=== PATIENT | male | born 1975 | race Caucasian/White ===

== ENCOUNTER → 2017-02-01 | Outpatient (CLI) | payer OTHER ==
--- NOTE | 2017-02-01 13:42 | MR ---
EXAMINATION TYPE: MR lumbar spine wo con DATE OF EXAM: 02/01/2017 10:29 AM COMPARISON: NONE HISTORY: lumbago TECHNIQUE: T1 and T2 axial and sagittal images of the lumbar spine are submitted. FINDINGS: There is no abnormal signal seen within the visualized spinal cord or paraspinal soft tissu es. At L1-2 there is no disc herniation, canal stenosis, or foraminal encroachment. At L2-3 there is no disc herniation, canal stenosis, or foraminal encroachment At L3-4 there is no disc herniation, canal stenosis, or foraminal encroachment At L4-5 there is no disc herniation, canal stenosis, or foraminal encroachment At L5-S1 there is annular tear and disc desiccation with broad-based central disc small herniation an d mild effacement of thecal sac. Mild bilateral foraminal encroachment. IMPRESSION: 1. Annular tear broad-based central disc herniation L5-S1 with mild thecal sac effacement and mild bi lateral foraminal encroachment.
== END | disposition home or self-care (01) ==
LOC: RADMRIMAIN 09:58
PROVIDERS: ATTEND Family Medicine
DX: M51.27 Other intervertebral disc displacement, lumbosacral region (principal)
CPT/HCPCS: 72148

== ENCOUNTER 2023-09-05 09:41 | Emergency (ER) | payer OTHER ==
[2023-09-05] MEDS ORDERED: HYDROcodone/APAP 7.5-325MG 1 EACH TAB PO ONE (10:00)
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
[2023-09-05 11:51] VITALS: BP 112/73; PULSE 93; RESP 18; TEMP 98.1
== END 2023-09-05 11:38 | disposition home or self-care (01) ==
LOC: EC 09:41
DX: S80.212A Abrasion, left knee, initial encounter (principal); S80.211A Abrasion, right knee, initial encounter; M54.9 Dorsalgia, unspecified; M47.814 Spondylosis without myelopathy or radiculopathy, thoracic region; M47.816 Spondylosis without myelopathy or radiculopathy, lumbar region; M51.36 Other intervertebral disc degeneration, lumbar region; J45.909 Unspecified asthma, uncomplicated; E11.9 Type 2 diabetes mellitus without complications; F17.200 Nicotine dependence, unspecified, uncomplicated; V89.2XXA Person injured in unspecified motor-vehicle accident, traffic, initial encounter; Y92.411 Interstate highway as the place of occurrence of the external cause
CPT/HCPCS: 70450; 72100; 72125; 99284

== ENCOUNTER 2025-01-27 03:15 | Inpatient (IN) | payer OTHER ==
--- NOTE | 2025-01-27 03:35 | ED ---
General Adult HPI - General Chief complaint: Abdominal Pain Stated complaint: Abdominal Pain Time Seen by Provider: 01/27/25 03:21 Source: patient Mode of arrival: ambulatory - History of Present Illness Initial comments: Dictation was produced using Jigsee dictation software. please excuse any grammatical, word or spelling errors. Chief Complaint: 49-year-old male presents to the emergency department with periumbilical abdominal pain History of Present Illness: Patient is a 49-year-old male presents emergency department 3 days of periumbilical abdominal pain. Patient states that the pain is severe he has history of diabetes. Denies any urinary symptoms. Denies any history of diverticulitis. No history of abdominal surgery. Patient's pain is nonradiating and sharp in nature. Does report some nausea and poor appetite. The ROS documented in this emergency department record has been reviewed and confirmed by me. Those systems with pertinent positive or negative responses have been documented in the HPI. All other systems are other negative and/or noncontributory. - Related Data Home Medications Medication Instructions Recorded Confirmed HYDROcodone/APAP 5-325MG [[place] 1 tab PO Q4HR PRN 01/27/25 01/27/25 5-325] Previous Rx's Medication Instructions Recorded Celecoxib [CeleBREX] 100 mg PO BID #20 cap 12/21/24 Insulin Glargine,Hum.rec.anlog 25 units SQ DAILY #2 pen 12/21/24 [Lantus Solostar Pen] bisacodyL [Dulcolax] 5 mg PO DAILY PRN tab 12/21/24 Allergies Allergy/AdvReac Type Severity Reaction Status Date / Time No Known Allergies Allergy Verified 01/27/25 06:40 Review of Systems ROS Statement: Those systems with pertinent positive or pertinent negative responses have been documented in the HPI. ROS Other: All systems not noted in ROS Statement are negative. Past Medical History Past Medical History: Asthma, Diabetes Mellitus History of Any Multi-Drug Resistant Organisms: None Reported Past Surgical History: Orthopedic Surgery Past Anesthesia/Blood Transfusion Reactions: No Reported Reaction Past Psychological History: No Psychological Hx Reported Smoking Status: Current every day smoker Past Alcohol Use History: None Reported Past Drug Use History: None Reported General Exam - General Exam Comments Initial Comments: PHYSICAL EXAM: General Impression: Alert and oriented x3, acute distress secondary to pain HEENT: Normocephalic atraumatic, extra-ocular movements intact, pupils equal and reactive to light bilaterally, mucous membranes moist. Cardiovascular: Heart regular rate and rhythm Chest: Able to complete full sentences, no retractions, no tachypnea Abdomen: abdomen soft, palpatory tenderness to the lower abdomen, non-distended, no organomegaly Musculoskeletal: Pulses present and equal in all extremities, no peripheral edema Motor: no focal deficits noted Neurological: CN II-XII grossly intact, no focal motor or sensory deficits noted Skin: Intact with no visualized rashes Psych: Normal affect and mood Course Vital Signs 01/27/25 01/27/25 01/27/25 03:16 04:19 06:37 Temperature 98.1 F 98.1 F Pulse Rate 113 H 106 H 104 H Respiratory 19 20 20 Rate Blood Pressure 116/72 132/92 120/91 O2 Sat by Pulse 96 96 97 Oximetry EKG Findings - EKG Comments: EKG Findings:: My EKG interpretation: Ventricular rate 11, sinus tachycardia,. 141, QRS 92, QTc 4 7. No [place] prolongation, no QTC prolongation, no ST or T-wave changes notedOverall, this EKG is unremarkable Medical Decision Making - Medical Decision Making Was pt. sent in by a medical professional or institution (, PA, FAMILY AND MARRIAGE COUNSELLOR, urgent care, hospital, or shelter...) When possible be specific @ -No Did you speak to anyone other than the patient for history (EMS, parent, family, police, friend...)? What history was obtained from this source @ -No Did you review nursing and triage notes (agree or disagree)? Why? @ -I reviewed and agree with nursing and triage notes Were old charts reviewed (outside hosp., previous admission, EMS record, old EKG, old radiological studies, urgent care reports/EKG's, shelter records)? Report findings @ -No old charts were reviewed Differential Diagnosis (chest pain, altered mental status, abdominal pain women, abdominal pain men, vaginal bleeding, musculoskeletal, weakness, fever, dyspnea, syncope, headache, dizziness, GI bleed, back pain, seizure, CVA, palpatations, mental health)? @ -Differential Abdominal Pain Men: Appendicitis, cholecystitis, diverticulosis, ischemic bowel, pancreatitis, hepatitis, UTI, gastroenteritis, AAA, incarcerated hernia, bowel obstruction, constipation, inflammatory bowel, hepatitis, peptic ulcer disease, splenic infarction, perforated viscus, testicular torsion, this is not meant to be an a ll-inclusive list EKG interpreted by me (3pts min.). @ -See above X-rays interpreted by me (1pt min.). @ -None done CT interpreted by me (1pt min.). @ -CT abdomen pelvis shows worsening perinephric fluid to the right kidney concerning for calyx rupture versus inflammatory process. U/S interpreted by me (1pt. min.). @ -None done What testing was considered but not performed or refused? (CT, X-rays, U/S, labs)? Why? @ -None What meds were considered but not given or refused? Why? @ -None Was smoking cessation discussed for >3mins.? @ -No Were there social determinants of health that impacted care today? How? (Homelessness, low income, unemployed, alcoholism, drug addiction, transportat ion, low edu. Level, literacy, decrease access to med. care, residential, rehab)? @ -No Was there de-escalation of care discussed even if they declined (Discuss DNR or withdrawal of care, Hospice)? DNR status @ -No What co-morbidities impacted this encounter? (DM, HTN, Smoking, COPD, CAD, Cancer, CVA, ARF, Chemo, Hep., AIDS, mental health diagnosis, sleep apnea, morbid obesity)? @ -Diabetes Was patient admitted / discharged? Hospital course, mention meds given and route, prescriptions, significant lab abnormalities, going to OR and other pertinent info. @ -49-year-old insulin-dependent diabetic male presents the emergency department for abdominal pain. Vital signs upon arrival shows tachycardia 113. Patient states that he has been having issues taking his diabetes medications consistently. Complains of 3 days of abdominal pain nausea vomiting. Patient denies ever being hospitalized for DKA in the past. Examination shows well- appearing male with smell of acetone. Evaluation shows leukocytosis of 15.1. Coag panel is negative. Bicarb of 7, anion gap of 32. Blood glucose 248. Labo ratory evaluation consistent with diabetic ketoacidosis. Pending urinalysis. Case will be discussed with urology given that CT shows worsening perinephric fluid around the right kidney. Patient reevaluated at bedside at 6:45 AM found to be in improved condition after analgesics. He does not have any flank pain. Did you discuss the management of the patient with other professionals (professionals i.e. , PA, FAMILY AND MARRIAGE COUNSELLOR, lab, RT, psych nurse, manager social responsibility, fringe weaver, teacher, disabilities services officer, correctional case manager)? Give summary @ -Case discussed with software quality specialist for ICU admission. Was critical care preformed (if so, how long)? @ -Yes, 77 minutes for management of severe metabolic derangement Undiagnosed new problem with uncertain prognosis? @ -No Drug Therapy requiring intensive monitoring for toxicity (Heparin, Nitro, Insulin, Cardizem)? @ -No Were any procedures done? @ -No Diagnosis/symptom? Acute, or Chronic, or Acute on Chronic? Uncomplicated (without systemic symptoms) or Complicated (systemic symptoms)? @ -DKA Side effects of treatment? @ -No Exacerbation, Progression, or Severe Exacerbation? @ -No Poses a threat to life or bodily function? How? (Chest pain, [place], [place], pneumonia, PE, COPD, DKA, ARF, appy, cholecystitis, CVA, Diverticulitis, Homicidal, Suicidal, threat to staff... and all critical care pts) @ -yes - Lab Data Result diagrams: 01/27/25 03:43 01/27/25 03:43 Lab Results 01/27/25 01/27/25 01/27/25 Range/Units 03:43 03:43 03:43 WBC 15.1 H (3.8-10.6) k/uL RBC 5.93 H (4.30-5.90) m/uL Hgb 16.1 D (13.0-17.5) gm/dL Hct 50.9 (39.0-53.0) % MCV 85.9 (80.0-100.0) fL MCH 27.1 (25.0-35.0) pg MCHC 31.6 (31.0-37.0) g/dL RDW 14.9 (11.5-15.5) % Plt Count 446 D (150-450) k/uL MPV 7.2 Neutrophils % 82 % Lymphocytes % 10 % Monocytes % 4 % Eosinophils % 1 % Basophils % 1 % Neutrophils # 12.4 H (1.3-7.7) k/uL Lymphocytes # 1.6 (1.0-4.8) k/uL Monocytes # 0.6 (0-1.0) k/uL Eosinophils # 0.1 (0-0.7) k/uL Basophils # 0.1 (0-0.2) k/uL Hypochromasia Marked PT 11.7 (10.0-12.5) sec INR 1.1 (<1.2) APTT 23.1 (22.0-30.0) sec VBG pH (7.31-7.41) VBG pCO2 (37-51) mmHg VBG HCO3 (24-28) mmol/L Sodium 141 (137-145) mmol/L Potassium 5.3 H (3.5-5.1) mmol/L Chloride 102 (98-107) mmol/L Carbon Dioxide 7 L* (22-30) mmol/L Anion Gap 32 mmol/L BUN 24 H (9-20) mg/dL Creatinine 1.05 (0.66-1.25) mg/dL Est GFR (CKD-EPI)AfAm >90 (>60 ml/min/1.73 sqM) Est GFR (CKD-EPI)NonAf 83 (>60 ml/min/1.73 sqM) Glucose 248 H (74-99) mg/dL Calcium 10.2 (8.4-10.2) mg/dL Total Bilirubin 0.7 (0.2-1.3) mg/dL AST 13 L (17-59) U/L ALT 13 (4-49) U/L Alkaline Phosphatase 111 (38-126) U/L Total Protein 8.1 (6.3-8.2) g/dL Albumin 4.4 (3.5-5.0) g/dL Lipase 290 (23-300) U/L Acetone, Qual (Negative) 01/27/25 01/27/25 Range/Units 05:34 05:34 WBC (3.8-10.6) k/uL RBC (4.30-5.90) m/uL Hgb (13.0-17.5) gm/dL Hct (39.0-53.0) % MCV (80.0-100.0) fL MCH (25.0-35.0) pg MCHC (31.0-37.0) g/dL RDW (11.5-15.5) % Plt Count (150-450) k/uL MPV Neutrophils % % Lymphocytes % % Monocytes % % Eosinophils % % Basophils % % Neutrophils # (1.3-7.7) k/uL Lymphocytes # (1.0-4.8) k/uL Monocytes # (0-1.0) k/uL Eosinophils # (0-0.7) k/uL Basophils # (0-0.2) k/uL Hypochromasia PT (10.0-12.5) sec INR (<1.2) APTT (22.0-30.0) sec VBG pH 7.14 L* (7.31-7.41) VBG pCO2 32 L (37-51) mmHg VBG HCO3 11 L (24-28) mmol/L Sodium (137-145) mmol/L Potassium (3.5-5.1) mmol/L Chloride (98-107) mmol/L Carbon Dioxide (22-30) mmol/L Anion Gap mmol/L BUN (9-20) mg/dL Creatinine (0.66-1.25) mg/dL Est GFR (CKD-EPI)AfAm (>60 ml/min/1.73 sqM) Est GFR (CKD-EPI)NonAf (>60 ml/min/1.73 sqM) Glucose (74-99) mg/dL Calcium (8.4-10.2) mg/dL Total Bilirubin (0.2-1.3) mg/dL AST (17-59) U/L ALT (4-49) U/L Alkaline Phosphatase (38-126) U/L Total Protein (6.3-8.2) g/dL Albumin (3.5-5.0) g/dL Lipase (23-300) U/L Acetone, Qual Positive (Negative) Disposition Clinical Impression: DKA (diabetic ketoacidosis) Disposition: ADMITTED IP TO THIS [facility] Condition: Critical Decision Time: 05:50
[2025-01-27] MEDS: SODIUM CHLORIDE 0.9% 1,000 ML IV STA ×2 (03:52→05:39)
[2025-01-27] MEDS: ONDANSETRON 4 MG/2 ML VIAL IVP STA (03:52)
[2025-01-27 03:54] LABS: Basophils # (A) 0.1 k/uL (0-0.2); Basophils % (A) 1 %; Eosinophils # (A) 0.1 k/uL (0-0.7); Eosinophils % (A) 1 %; HCT 50.9 % (39.0-53.0); Hypochromasia Marked; Lymphocytes # (A) 1.6 k/uL (1.0-4.8); Lymphocytes % (A) 10 %; MCH 27.1 pg (25.0-35.0); MCHC 31.6 g/dL (31.0-37.0); MCV 85.9 fL (80.0-100.0); Mean Platelet Volume 7.2; Monocytes # (A) 0.6 k/uL (0-1.0); Monocytes % (A) 4 %; Neutrophils # (A) 12.4 k/uL (1.3-7.7); Neutrophils % (A) 82 %; RBC 5.93 m/uL (4.30-5.90); RDW 14.9 % (11.5-15.5); WBC 15.1 k/uL (3.8-10.6)
[2025-01-27] MEDS: MORPHINE SULFATE 4 MG/ML SYRINGE IV STA (03:54)
[2025-01-27 04:04] LABS: HGB 16.1 gm/dL (13.0-17.5); INR 1.1 (<1.2); Partial Thromboplastin Time 23.1 sec (22.0-30.0); Platelet Count 446 k/uL (150-450); Prothrombin Time 11.7 sec (10.0-12.5)
[2025-01-27 04:32] LABS: ALT 13 U/L (4-49); AST 13 U/L (17-59); African American GFR (CKD) >90 (>60 ml/min/1.73 sqM); Albumin 4.4 g/dL (3.5-5.0); Alkaline Phosphatase 111 U/L (38-126); Anion Gap 32 mmol/L; Blood Urea Nitrogen 24 mg/dL (9-20); Calcium 10.2 mg/dL (8.4-10.2); Chloride 102 mmol/L (98-107); Glucose 248 mg/dL (74-99); Lipase 290 U/L (23-300); Non-African American GFR(CKD) 83 (>60 ml/min/1.73 sqM); Potassium 5.3 mmol/L (3.5-5.1); Sodium 141 mmol/L (137-145); Total Bilirubin 0.7 mg/dL (0.2-1.3); Total Protein 8.1 g/dL (6.3-8.2)
[2025-01-27 04:57] LABS: Carbon Dioxide 7 mmol/L (22-30)
[2025-01-27 06:10] LABS: VBG PH 7.14 (7.31-7.41)
[2025-01-27 06:19] LABS: Glucose,Whole Blood 201 mg/dL (70-110)
[2025-01-27] MEDS: D5-0.45% NACL WITH KCL 20MEQ/L 1,000 ML IV SCH (06:27)
[2025-01-27] MEDS: INSULIN REGULAR 100 UNIT in SODIUM CHLORIDE 0.9% 100 ML IV SCH (06:27)
[2025-01-27] MEDS: INSULIN REGULAR BOLUS (FROM DRIP BAG) IV ONE (06:32)
[2025-01-27] MEDS: SODIUM CHLORIDE 0.9% 1,000 ML IV SCH (06:43)
--- NOTE | 2025-01-27 06:43 | CT ---
EXAMINATION TYPE: CT abdomen pelvis w con DATE OF EXAM: 01/27/2025 COMPARISON: Prior CT December 17, 2024 CLINICAL INDICATION: Male, 49 years old with history of severe periumbilical pain, vomiting nausea an d sharp stabbing abd pain., TECHNIQUE: CT scan of the abdomen and pelvis is performed with IV Contrast, patient injected with 100 mL of Isov ue 300., (none if empty) Oral contrast used: without Oral Contrast (none if empty) CT DLP: 1306 mGycm, Automated exposure control for dose reduction was used. FINDINGS: LUNG BASES: No significant abnormality is appreciated. LIVER/GB: Liver remains heterogeneously hypodense suggesting diffuse fatty infiltrative hepatocellula r disease. PANCREAS: No significant abnormality is seen. SPLEEN: No significant abnormality is seen. ADRENALS: No significant abnormality is seen. KIDNEYS: Right kidney demonstrates diminished signal involving posterior portion of the kidney delaye d images suggesting washout. There is more focal well-defined circumscribed fluid collection along th e posterior aspect of the right kidney measuring 6.8 x 4.5 cm coronal image 63. There is more promine nt ill-defined perinephric fluid posteriorly axial image 43. Left kidney is unremarkable. BOWEL:. Distal colonic diverticula are redemonstrated. No CT evidence for acute diverticulitis. No ab normal small or large bowel dilatation. PROSTATE/SEMINAL VESICLES: No gross abnormality seen. LYMPH NODES: No greater than 1cm abdominal or pelvic lymph nodes are appreciated. OSSEOUS STRUCTURES: No significant abnormality is seen. OTHER: No significant additional abnormality is seen. IMPRESSION: 1. Worsening perinephric fluid posterior to the right kidney. One must consider calyx rupture versus infection/inflammatory process. There is now also nonspecific 6.8 cm moderate size thin-walled fluid collection or cyst in the posterior aspect of the right kidney at the area diminished perfusion on pr ior exam. New abscess needs to be considered among possible etiologies. [facility], , 01/27/2025 6:41 AM
[2025-01-27 07:05] LABS: Glucose,Whole Blood 172 mg/dL (70-110)
[2025-01-27 07:39] LABS: Appearance,Urine Clear (Clear); Bilirubin,Urine Negative (Negative); Blood,Urine Negative (Negative); Glucose,Urine (UA) 4+ (Negative); Leukocyte Esterase,Urine Negative (Negative); Nitrite,Urine Negative (Negative); Protein,Urine Negative (Negative); Specific Gravity,Urine 1.029 (1.001-1.035); Urobilinogen,Urine <2.0 mg/dL (<2.0)
[2025-01-27] MEDS ORDERED: bisacodyL 5 MG TABLET.DR PO PRN (08:14)
[2025-01-27] MEDS ORDERED: ACETAMINOPHEN TAB 325 MG TAB PO PRN (08:15)
[2025-01-27 08:16] LABS: African American GFR (CKD) >90 (>60 ml/min/1.73 sqM); Anion Gap 25 mmol/L; Blood Urea Nitrogen 23 mg/dL (9-20); Carbon Dioxide 10 mmol/L (22-30); Chloride 109 mmol/L (98-107); Glucose 138 mg/dL (74-99); Non-African American GFR(CKD) >90 (>60 ml/min/1.73 sqM); Potassium 4.4 mmol/L (3.5-5.1); Sodium 144 mmol/L (137-145)
[2025-01-27] MEDS: HYDROcodone/APAP 5-325MG 1 EACH TAB PO PRN (08:23)
[2025-01-27 08:24] LABS: Color,Urine Light yellow; Ketones,Urine 4+ (Negative)
[2025-01-27 08:29] LABS: Glucose,Whole Blood 125 mg/dL (70-110)
[2025-01-27 09:33] LABS: Glucose,Whole Blood 90 mg/dL (70-110)
--- NOTE | 2025-01-27 09:36 | P.HPIM ---
History of Present Illness This is a pleasant 49 years old male with past medical history of diabetes mellitus and multiple medical problems Presents because of worsening abdominal pain of 3 days duration about 7/10 severity central nonradiating felt like sharp and stabbing and is constant with no significant relieving or precipitating factors No diarrhea and his last bowel movement was 2 days ago. He vomited over the 3 days with no blood. He denies chest pain or dyspnea. No urinary complaint like dysuria or urgency, no headache dizziness weakness or numbness Currently feels his abdominal pain is better He smokes 1 pack/day and was counseled to quit but he declines however he agrees to the nicotine patch while he is in the hospital. No alcohol or illicit drugs. He was not taking antibiotics at home Patient states he takes 3 pills for diabetes that he cannot remember the name plus Trulicity injection. He is tachycardic and afebrile Labs showing leukocytosis 15,000, hemoglobin 16.1 potassium 5.3 glucose 200-248. pH is low at 7.14 and pCO2 is 32. Anion gap is elevated 32. Acetone is positive EKG showing sinus tachycardia at 111 CT of the abdomen showing right kidney perinephric fluid posteriorly and there is secondary to infection/inflammatory versus rupture right kidney calyx also there is posterior right kidney cyst that was 6.8 cm need to rule out abscess Review of Systems Review of systems CONSTITUTIONAL: No fever, no malaise, no fatigue. HEENT: No recent visual problems or hearing problems. Denied any sore throat. CARDIOVASCULAR: No orthopnea, PND, no palpitations, no syncope. PULMONARY: No shortness of breath, no cough, no hemoptysis. GASTROINTESTINAL: No diarrhea, no nausea, no vomiting, no abdominal pain. Normoactive bowel sounds. NEUROLOGICAL: No headaches, no weakness, no numbness. HEMATOLOGICAL: Denies any bleeding or petechiae. GENITOURINARY: Denies any burning micturition, frequency, or urgency. MUSCULOSKELETAL/RHEUMATOLOGICAL: Denies any joint pain, swelling, or any muscle pain. ENDOCRINE: Denies any polyuria or polydipsia. Past Medical History Past Medical History: Asthma, Diabetes Mellitus History of Any Multi-Drug Resistant Organisms: None Reported Past Surgical History: Orthopedic Surgery Past Anesthesia/Blood Transfusion Reactions: No Reported Reaction Past Psychological History: No Psychological Hx Reported Smoking Status: Current every day smoker Past Alcohol Use History: None Reported Past Drug Use History: None Reported Medications and Allergies Home Medications Medication Instructions Recorded Confirmed Type Celecoxib [CeleBREX] 100 mg PO BID #20 cap 12/21/24 01/27/25 Rx Insulin Glargine,Hum.rec.anlog 25 units SQ DAILY #2 pen 12/21/24 01/27/25 Rx [Lantus Solostar Pen] bisacodyL [Dulcolax] 5 mg PO DAILY PRN tab 12/21/24 01/27/25 Rx HYDROcodone/APAP 5-325MG [Mason 1 tab PO Q4HR PRN 01/27/25 01/27/25 History 5-325] Allergies Allergy/AdvReac Type Severity Reaction Status Date / Time No Known Allergies Allergy Verified 01/27/25 06:40 Physical Exam Vitals: Vital Signs Temp Pulse Resp BP Pulse Ox 01/27/25 09:00 108 H 23 116/67 97 01/27/25 08:00 97.9 F 111 H 18 117/85 95 01/27/25 07:00 110 H 14 130/87 96 01/27/25 06:44 98.7 F 111 H 22 130/87 96 01/27/25 06:37 98.1 F 104 H 20 120/91 97 01/27/25 04:19 106 H 20 132/92 96 01/27/25 03:16 98.1 F 113 H 19 116/72 96 Intake and Output 01/26/25 01/27/25 01/27/25 22:59 06:59 14:59 Intake Total 471.532 Output Total 500 Balance -28.468 Intake: IV 450 D5-0.45% NaCl with KCl 450 20Meq/l 1,000 ml @ 150 mls/hr IV .Q6H40M [facility] Rx# :[id number] Intake, IV Titration 21.532 Amount Insulin Regular 100 unit 21.532 In Sodium Chloride 0.9% 100 ml @ 0.1 UNITS/KG/HR 10.766 mls/hr IV .Q9H23M [facility] Rx#:[id number] Output: Urine 500 Other: Voiding Method Urinal Weight 106.594 kg GENERAL: The patient is alert and oriented x3, not in any acute distress. Well developed, well nourished. HEENT: Pupils are round and equally reacting to light. EOMI. No scleral icterus. No conjunctival pallor. Normocephalic, atraumatic. No pharyngeal erythema. No thyromegaly. CARDIOVASCULAR: S1 and S2 present. No murmurs, rubs, or gallops. PULMONARY: Chest is clear to auscultation, no wheezing , no crackles. -ABDOMEN: Soft, mild central tenderness with no rebound tenderness or guarding r, nondistended, normoactive bowel sounds. No palpable organomegaly. MUSCULOSKELETAL: No joint swelling or deformity. EXTREMITIES: No cyanosis, clubbing, or pedal edema. NEUROLOGICAL: Gross neurological examination did not reveal any focal deficits. SKIN: No rashes. no petechiae. Results CBC & Chem 7: 01/27/25 03:43 01/27/25 07:38 Labs: Abnormal Lab Results - Last 24 Hours (Table) 01/27/25 01/27/25 01/27/25 Range/Units 03:43 03:43 05:34 WBC 15.1 H (3.8-10.6) k/uL RBC 5.93 H (4.30-5.90) m/uL Neutrophils # 12.4 H (1.3-7.7) k/uL VBG pH 7.14 L* (7.31-7.41) VBG pCO2 32 L (37-51) mmHg VBG HCO3 11 L (24-28) mmol/L Potassium 5.3 H (3.5-5.1) mmol/L Chloride (98-107) mmol/L Carbon Dioxide 7 L* (22-30) mmol/L BUN 24 H (9-20) mg/dL Glucose 248 H (74-99) mg/dL POC Glucose (mg/dL) (70-110) mg/dL Phosphorus (2.5-4.5) mg/dL AST 13 L (17-59) U/L Urine Glucose (UA) (Negative) Urine Ketones (Negative) 01/27/25 01/27/25 01/27/25 Range/Units 06:18 06:59 07:03 WBC (3.8-10.6) k/uL RBC (4.30-5.90) m/uL Neutrophils # (1.3-7.7) k/uL VBG pH (7.31-7.41) VBG pCO2 (37-51) mmHg VBG HCO3 (24-28) mmol/L Potassium (3.5-5.1) mmol/L Chloride (98-107) mmol/L Carbon Dioxide (22-30) mmol/L BUN (9-20) mg/dL Glucose (74-99) mg/dL POC Glucose (mg/dL) 201 H 172 H (70-110) mg/dL Phosphorus (2.5-4.5) mg/dL AST (17-59) U/L Urine Glucose (UA) 4+ H (Negative) Urine Ketones 4+ H (Negative) 01/27/25 01/27/25 01/27/25 Range/Units 07:38 07:38 08:27 WBC (3.8-10.6) k/uL RBC (4.30-5.90) m/uL Neutrophils # (1.3-7.7) k/uL VBG pH (7.31-7.41) VBG pCO2 (37-51) mmHg VBG HCO3 (24-28) mmol/L Potassium (3.5-5.1) mmol/L Chloride 109 H (98-107) mmol/L Carbon Dioxide 10 L (22-30) mmol/L BUN 23 H (9-20) mg/dL Glucose 138 H (74-99) mg/dL POC Glucose (mg/dL) 125 H (70-110) mg/dL Phosphorus 5.0 H (2.5-4.5) mg/dL AST (17-59) U/L Urine Glucose (UA) (Negative) Urine Ketones (Negative) Assessment and Plan Assessment: Diabetic ketoacidosis Right kidney perinephric fluid collection posteriorly suspicious for abscess or or ruptured calyx versus infection/inflammatory plus right posterior kidney six 6.8 cm, need to rule out abscess Severe metabolic acidosis History of asthma, not an active issue Plan: Patient admitted to the ICU Continue with insulin drip per protocol Pulmonary/critical care team consult Urology consult for right kidney abnormality Pain management Labs and medication were reviewed.. Continue same treatment. Continue with symptomatic treatment. Resume home medication. Monitor labs and vitals. DVT and GI prophylaxis. Further recommendations as per clinical course of the patient DVT prophylaxis: Subcutaneous heparin GI Prophylaxis: Pepcid PT/OT: Pending Prognosis is guarded
[2025-01-27] MEDS: MELOXICAM 7.5 MG TAB PO SCH (09:45)
[2025-01-27 11:10] LABS: Glucose,Whole Blood 155 mg/dL (70-110)
[2025-01-27 12:07] VITALS: BMI 30.2
[2025-01-27 12:09] LABS: Glucose,Whole Blood 119 mg/dL (70-110)
[2025-01-27 12:34] LABS: African American GFR (CKD) >90 (>60 ml/min/1.73 sqM); Anion Gap 22 mmol/L; Blood Urea Nitrogen 21 mg/dL (9-20); Carbon Dioxide 13 mmol/L (22-30); Chloride 107 mmol/L (98-107); Glucose 135 mg/dL (74-99); Non-African American GFR(CKD) >90 (>60 ml/min/1.73 sqM); Potassium 5.4 mmol/L (3.5-5.1); Sodium 142 mmol/L (137-145)
[2025-01-27] MEDS: ONDANSETRON 4 MG/2 ML VIAL IVP PRN (12:35)
--- NOTE | 2025-01-27 12:51 | P.GSCN ---
History of Present Illness Consult date: 01/27/25 Reason for Consult: Right sided renal fluid collection History of present illness: This is a 49-year-old male admitted to the hospital with DKA. On presentation he was having diffuse abdominal pain, and mild right-sided flank pain. He was afebrile on presentation continues to be. Urology is consulted for a possible right-sided renal abscess. Patient had a recent hospital admission last month with pyelonephritis, urine culture and blood culture at that time grew Klebsiella. He underwent a CT abdomen pelvis on presentation that showed evidence of a 6 centimeter fluid collection around the kidney. He did have a CT last month which showed a focal area of pyelonephritis, this has slightly progressed on the CT, slightly more discrete collection adjacent to the kidney. No air within the collection. No previous renal images prior to this year. Review of Systems - Constitutional Denies fever, Denies weight loss - Cardiovascular Denies chest pain, Denies shortness of breath - Respiratory Denies cough, Denies 7 - Gastrointestinal Reports abdominal pain - Genitourinary Reports flank pain, Denies hematuria - Integumentary Denies rash, Denies unusual bruising - Neurological Denies headaches, Denies syncope Past Medical History Past Medical History: Asthma, Diabetes Mellitus History of Any Multi-Drug Resistant Organisms: None Reported Past Surgical History: Orthopedic Surgery Past Anesthesia/Blood Transfusion Reactions: No Reported Reaction Past Psychological History: No Psychological Hx Reported Smoking Status: Current every day smoker Past Alcohol Use History: None Reported Past Drug Use History: None Reported Medications and Allergies Home Medications Medication Instructions Recorded Confirmed Type Atorvastatin [Lipitor] 20 mg PO HS 01/27/25 01/27/25 History Dulaglutide [Trulicity] 4.5 mg SQ MO 01/27/25 01/27/25 History Empagliflozin [Jardiance] 25 mg PO DAILY 01/27/25 01/27/25 History Gabapentin 600 mg PO TID 01/27/25 01/27/25 History HYDROcodone/APAP 5-325MG [Upson 1 tab PO Q4HR PRN 01/27/25 01/27/25 History 5-325] HYDROcodone/APAP 7.5-325MG [Upson 1 tab PO TID PRN 01/27/25 01/27/25 History 7.5-325] Ibuprofen [Motrin] 600 mg PO Q6H PRN 01/27/25 01/27/25 History Ibuprofen [Motrin] 800 mg PO TID PRN 01/27/25 01/27/25 History Naproxen Sodium [Aleve] 220 - 440 mg PO BID PRN 01/27/25 01/27/25 History Omeprazole 20 mg PO DAILY 01/27/25 01/27/25 History Pioglitazone [Actos] 30 mg PO DAILY 01/27/25 01/27/25 History lisinopriL [Zestril] 5 mg PO DAILY 01/27/25 01/27/25 History metFORMIN HCL [Glucophage] 1,000 mg PO BID 01/27/25 01/27/25 History Allergies Allergy/AdvReac Type Severity Reaction Status Date / Time No Known Allergies Allergy Verified 01/27/25 06:40 Surgical - Exam Vital Signs Temp Pulse Resp BP Pulse Ox 98.1 F 113 H 19 116/72 96 01/27/25 03:16 01/27/25 03:16 01/27/25 03:16 01/27/25 03:16 01/27/25 03:16 - General no distress, no pain - Eyes normal ocular movement, no pale - ENT normal nares, normal mucosa - Respiratory normal expansion, normal respiratory effort - Abdomen Abdomen: soft, tender (Mild tenderness along the right flank), no distended - Psychiatric oriented to time, oriented to person, oriented to place Results - Labs 01/27/25 03:43 01/27/25 12:04 Abnormal Lab Results - Last 24 Hours (Table) 01/27/25 01/27/25 01/27/25 Range/Units 03:43 03:43 05:34 WBC 15.1 H (3.8-10.6) k/uL RBC 5.93 H (4.30-5.90) m/uL Neutrophils # 12.4 H (1.3-7.7) k/uL VBG pH 7.14 L* (7.31-7.41) VBG pCO2 32 L (37-51) mmHg VBG HCO3 11 L (24-28) mmol/L Potassium 5.3 H (3.5-5.1) mmol/L Chloride (98-107) mmol/L Carbon Dioxide 7 L* (22-30) mmol/L BUN 24 H (9-20) mg/dL Glucose 248 H (74-99) mg/dL POC Glucose (mg/dL) (70-110) mg/dL Phosphorus (2.5-4.5) mg/dL AST 13 L (17-59) U/L Urine Glucose (UA) (Negative) Urine Ketones (Negative) 01/27/25 01/27/25 01/27/25 Range/Units 06:18 06:59 07:03 WBC (3.8-10.6) k/uL RBC (4.30-5.90) m/uL Neutrophils # (1.3-7.7) k/uL VBG pH (7.31-7.41) VBG pCO2 (37-51) mmHg VBG HCO3 (24-28) mmol/L Potassium (3.5-5.1) mmol/L Chloride (98-107) mmol/L Carbon Dioxide (22-30) mmol/L BUN (9-20) mg/dL Glucose (74-99) mg/dL POC Glucose (mg/dL) 201 H 172 H (70-110) mg/dL Phosphorus (2.5-4.5) mg/dL AST (17-59) U/L Urine Glucose (UA) 4+ H (Negative) Urine Ketones 4+ H (Negative) 01/27/25 01/27/25 01/27/25 Range/Units 07:38 07:38 08:27 WBC (3.8-10.6) k/uL RBC (4.30-5.90) m/uL Neutrophils # (1.3-7.7) k/uL VBG pH (7.31-7.41) VBG pCO2 (37-51) mmHg VBG HCO3 (24-28) mmol/L Potassium (3.5-5.1) mmol/L Chloride 109 H (98-107) mmol/L Carbon Dioxide 10 L (22-30) mmol/L BUN 23 H (9-20) mg/dL Glucose 138 H (74-99) mg/dL POC Glucose (mg/dL) 125 H (70-110) mg/dL Phosphorus 5.0 H (2.5-4.5) mg/dL AST (17-59) U/L Urine Glucose (UA) (Negative) Urine Ketones (Negative) 01/27/25 01/27/25 01/27/25 Range/Units 10:58 12:04 12:08 WBC (3.8-10.6) k/uL RBC (4.30-5.90) m/uL Neutrophils # (1.3-7.7) k/uL VBG pH (7.31-7.41) VBG pCO2 (37-51) mmHg VBG HCO3 (24-28) mmol/L Potassium 5.4 H (3.5-5.1) mmol/L Chloride (98-107) mmol/L Carbon Dioxide 13 L (22-30) mmol/L BUN 21 H (9-20) mg/dL Glucose 135 H (74-99) mg/dL POC Glucose (mg/dL) 155 H 119 H (70-110) mg/dL Phosphorus (2.5-4.5) mg/dL AST (17-59) U/L Urine Glucose (UA) (Negative) Urine Ketones (Negative) Diabetes panel 01/27/25 01/27/25 01/27/25 Range/Units 03:43 07:38 12:04 Sodium 141 144 142 (137-145) mmol/L Potassium 5.3 H 4.4 5.4 H (3.5-5.1) mmol/L Chloride 102 109 H 107 (98-107) mmol/L Carbon Dioxide 7 L* 10 L 13 L (22-30) mmol/L BUN 24 H 23 H 21 H (9-20) mg/dL Creatinine 1.05 0.87 0.71 (0.66-1.25) mg/dL Glucose 248 H 138 H 135 H (74-99) mg/dL Calcium 10.2 (8.4-10.2) mg/dL AST 13 L (17-59) U/L ALT 13 (4-49) U/L Alkaline Phosphatase 111 (38-126) U/L Total Protein 8.1 (6.3-8.2) g/dL Albumin 4.4 (3.5-5.0) g/dL Calcium panel 01/27/25 01/27/25 Range/Units 03:43 07:38 Calcium 10.2 (8.4-10.2) mg/dL Phosphorus 5.0 H (2.5-4.5) mg/dL Albumin 4.4 (3.5-5.0) g/dL Pituitary panel 0301/27/25 01/27/25 Range/Units 03:43 07:38 12:04 Sodium 141 144 142 (137-145) mmol/L Potassium 5.3 H 4.4 5.4 H (3.5-5.1) mmol/L Chloride 102 109 H 107 (98-107) mmol/L Carbon Dioxide 7 L* 10 L 13 L (22-30) mmol/L BUN 24 H 23 H 21 H (9-20) mg/dL Creatinine 1.05 0.87 0.71 (0.66-1.25) mg/dL Glucose 248 H 138 H 135 H (74-99) mg/dL Calcium 10.2 (8.4-10.2) mg/dL Adrenal panel 01/27/25 01/27/25 01/27/25 Range/Units 03:43 07:38 12:04 Sodium 141 144 142 (137-145) mmol/L Potassium 5.3 H 4.4 5.4 H (3.5-5.1) mmol/L Chloride 102 109 H 107 (98-107) mmol/L Carbon Dioxide 7 L* 10 L 13 L (22-30) mmol/L BUN 24 H 23 H 21 H (9-20) mg/dL Creatinine 1.05 0.87 0.71 (0.66-1.25) mg/dL Glucose 248 H 138 H 135 H (74-99) mg/dL Calcium 10.2 (8.4-10.2) mg/dL Total Bilirubin 0.7 (0.2-1.3) mg/dL AST 13 L (17-59) U/L ALT 13 (4-49) U/L Alkaline Phosphatase 111 (38-126) U/L Total Protein 8.1 (6.3-8.2) g/dL Albumin 4.4 (3.5-5.0) g/dL Assessment and Plan Assessment: 49-year-old male admitted to the hospital with DKA. His symptoms vital and lab work are not consistent with a renal abscess, as he is having a mild flank pain, with no fevers. Reviewing both images there is some progression, but I do not clearly see any drainable abscess at this time, as on imaging there is focal area within the renal parenchyma which could be more of a focal pyelonephritis and an adjacent fluid collection is difficult to assess whether this is infected or not given the lack of air around within. Recommend starting IV antibiotics and closely following. I do recommend repeat images based on how he progresses to assess if there is further progression or resolution. I discussed with him that given his history of poorly controlled diabetes he is at a higher risk of forming a renal abscess and his course might change advisor time. -At this time we will start ceftriaxone -Plan on repeating CT abdomen within a week to reassess any changes
[2025-01-27 13:22] LABS: Glucose,Whole Blood 124 mg/dL (70-110)
[2025-01-27] MEDS: NON FORMULARY DRUG (Dulaglutide [Trulicity] 4.5 MG/0.5 ML Each) SQ SCH (14:28)
[2025-01-27 14:39] LABS: Glucose,Whole Blood 115 mg/dL (70-110)
[2025-01-27] MEDS: GABAPENTIN 300 MG CAP PO SCH (16:06)
[2025-01-27 16:11] LABS: Glucose,Whole Blood 151 mg/dL (70-110)
[2025-01-27 17:03] LABS: Glucose,Whole Blood 135 mg/dL (70-110)
[2025-01-27] MEDS: metFORMIN 500 MG TAB PO SCH (17:07)
[2025-01-27 17:24] LABS: ALT 12 U/L (4-49); AST 14 U/L (17-59); African American GFR (CKD) >90 (>60 ml/min/1.73 sqM); Alkaline Phosphatase 92 U/L (38-126); Anion Gap 22 mmol/L; Blood Urea Nitrogen 18 mg/dL (9-20); Calcium 9.5 mg/dL (8.4-10.2); Carbon Dioxide 14 mmol/L (22-30); Chloride 106 mmol/L (98-107); Glucose 159 mg/dL (74-99); Non-African American GFR(CKD) >90 (>60 ml/min/1.73 sqM); Phosphorus 3.3 mg/dL (2.5-4.5); Potassium 4.5 mmol/L (3.5-5.1); Sodium 142 mmol/L (137-145); Total Bilirubin 0.6 mg/dL (0.2-1.3); Total Protein 7.6 g/dL (6.3-8.2)
[2025-01-27 18:34] LABS: Glucose,Whole Blood 242 mg/dL (70-110)
[2025-01-27 20:22] LABS: Glucose,Whole Blood 191 mg/dL (70-110)
[2025-01-27] MEDS: HEPARIN SODIUM,PORCINE 5,000 UNIT/ML 1 ML VIAL SQ SCH (20:33)
[2025-01-27] MEDS: ATORVASTATIN 20 MG TAB PO SCH (20:33)
[2025-01-27] MEDS: FAMOTIDINE 20 MG/2 ML VIAL IV SCH (20:33)
[2025-01-27 20:55] LABS: ALT 10 U/L (4-49); AST 13 U/L (17-59); African American GFR (CKD) >90 (>60 ml/min/1.73 sqM); Albumin 3.7 g/dL (3.5-5.0); Alkaline Phosphatase 97 U/L (38-126); Anion Gap 20 mmol/L; Blood Urea Nitrogen 16 mg/dL (9-20); Calcium 9.5 mg/dL (8.4-10.2); Carbon Dioxide 12 mmol/L (22-30); Chloride 106 mmol/L (98-107); Glucose 208 mg/dL (74-99); Non-African American GFR(CKD) >90 (>60 ml/min/1.73 sqM); Phosphorus 3.1 mg/dL (2.5-4.5); Potassium 4.7 mmol/L (3.5-5.1); Sodium 138 mmol/L (137-145); Total Bilirubin 0.7 mg/dL (0.2-1.3); Total Protein 7.2 g/dL (6.3-8.2)
[2025-01-27 21:07] LABS: Glucose,Whole Blood 398 mg/dL (70-110)
[2025-01-27 22:00] LABS: Glucose,Whole Blood 257 mg/dL (70-110)
[2025-01-27 23:06] LABS: Glucose,Whole Blood 552 mg/dL (70-110)
[2025-01-28 03:00] LABS: Glucose,Whole Blood 146 mg/dL (70-110)
[2025-01-28 03:15] LABS: African American GFR (CKD) >90 (>60 ml/min/1.73 sqM); Anion Gap 14 mmol/L; Blood Urea Nitrogen 14 mg/dL (9-20); Calcium 9.8 mg/dL (8.4-10.2); Carbon Dioxide 20 mmol/L (22-30); Chloride 103 mmol/L (98-107); Glucose 160 mg/dL (74-99); Non-African American GFR(CKD) >90 (>60 ml/min/1.73 sqM); Potassium 4.4 mmol/L (3.5-5.1); Sodium 137 mmol/L (137-145)
[2025-01-28 04:08] LABS: Glucose,Whole Blood 130 mg/dL (70-110)
[2025-01-28 05:09] LABS: Glucose,Whole Blood 131 mg/dL (70-110)
[2025-01-28 05:52] LABS: Glucose,Whole Blood 227 mg/dL (70-110)
[2025-01-28 05:57] LABS: HCT 44.3 % (39.0-53.0); HGB 14.2 gm/dL (13.0-17.5); Hypochromasia Moderate; MCH 26.6 pg (25.0-35.0); MCV 83.1 fL (80.0-100.0); Platelet Count 440 k/uL (150-450); RBC 5.33 m/uL (4.30-5.90); WBC 13.2 k/uL (3.8-10.6)
[2025-01-28 06:14] LABS: African American GFR (CKD) >90 (>60 ml/min/1.73 sqM); Anion Gap 14 mmol/L; Blood Urea Nitrogen 13 mg/dL (9-20); Calcium 9.3 mg/dL (8.4-10.2); Carbon Dioxide 19 mmol/L (22-30); Chloride 103 mmol/L (98-107); Glucose 131 mg/dL (74-99); Non-African American GFR(CKD) >90 (>60 ml/min/1.73 sqM); Potassium 4.2 mmol/L (3.5-5.1); Sodium 136 mmol/L (137-145)
--- NOTE | 2025-01-28 07:45 | P.PN ---
Subjective This is a pleasant 49 years old male with past medical history of diabetes mellitus and multiple medical problems Presents because of worsening abdominal pain of 3 days duration about 7/10 severity central nonradiating felt like sharp and stabbing and is constant with no significant relieving or precipitating factors No diarrhea and his last bowel movement was 2 days ago. He vomited over the 3 days with no blood. He denies chest pain or dyspnea. No urinary complaint like dysuria or urgency, no headache dizziness weakness or numbness Currently feels his abdominal pain is better He smokes 1 pack/day and was counseled to quit but he declines however he agrees to the nicotine patch while he is in the hospital. No alcohol or illicit drugs. He was not taking antibiotics at home Patient states he takes 3 pills for diabetes that he cannot remember the name plus Trulicity injection. He is tachycardic and afebrile Labs showing leukocytosis 15,000, hemoglobin 16.1 potassium 5.3 glucose 200-248. pH is low at 7.14 and pCO2 is 32. Anion gap is elevated 32. Acetone is positive EKG showing sinus tachycardia at 111 CT of the abdomen showing right kidney perinephric fluid posteriorly and there is secondary to infection/inflammatory versus rupture right kidney calyx also there is posterior right kidney cyst that was 6.8 cm need to rule out abscess 01/28 Patient feels better today, no abdominal pain. He took pain pills about couple hours ago and now is completely gone also he vomited once earlier this morning No bowel movement or passing gas yet. Patient yesterday was evaluated by urologist and there was no convincing evidence of abscess. This looks reasonable as patient with no significant fever, no significant pain. Patient was started on ceftriaxone and plan to repeat CAT scan of the abdomen pelvis for 1 week with urology to assess for any changes. He remains on insulin drip at 0.5 with anion gap of coming down to 13-14. Has continue also on IV hydration. Possible discontinuation drip today Possible discharge in 24 to 48 hours if he keeps improving He is complaining from sore throat, will check viruses Review of systems CONSTITUTIONAL: No fever, no malaise, no fatigue. -HEENT: No recent visual problems or hearing problems. + sore throat. GASTROINTESTINAL: No diarrhea, no nausea, no vomiting, no abdominal pain. Normoactive bowel sounds. NEUROLOGICAL: No headaches, no weakness, no numbness. HEMATOLOGICAL: Denies any bleeding or petechiae. GENITOURINARY: Denies any burning micturition, frequency, or urgency. MUSCULOSKELETAL/RHEUMATOLOGICAL: Denies any joint pain, swelling, or any muscle pain. ENDOCRINE: Denies any polyuria or polydipsia. Active Medications Generic Name Dose Route Start Last Admin Trade Name Freq PRN Reason Stop Dose Admin Acetaminophen 650 mg 01/27/25 08:15 Acetaminophen Tab 325 Mg Tab PO Q6HR PRN Fever and/ or Pain Hydrocodone Bitart/Acetaminophen 1 each 01/27/25 08:14 01/28/25 06:27 Hydrocodone/Apap 5-325mg 1 Each Tab PO 1 each Q4HR PRN Administration Pain Atorvastatin Calcium 20 mg 01/27/25 21:00 01/27/25 20:33 Atorvastatin 20 Mg Tab PO 20 mg HS [facility] Administration Bisacodyl 5 mg 01/27/25 08:14 Bisacodyl 5 Mg Tablet.Dr PO DAILY PRN Constipation Dapagliflozin 10 mg 01/28/25 09:00 Dapagliflozin Propanediol 10 Mg Tablet PO DAILY [facility] Famotidine 20 mg 01/27/25 21:00 01/27/25 20:33 Famotidine 20 Mg/2 Ml Vial IV 20 mg Q12HR [facility] Administration Gabapentin 600 mg 01/27/25 16:00 01/27/25 20:33 Gabapentin 300 Mg Cap PO 600 mg TID [facility] Administration Heparin Sodium (Porcine) 5,000 unit 01/27/25 21:00 01/27/25 20:33 Heparin Sodium,Porcine 5,000 Unit/Ml 1 Ml Vial SQ 5,000 unit Q12HR [facility] Administration Insulin Human Regular 100 unit 101 mls @ 10.766 mls/hr 01/27/25 05:45 01/28/25 05:08 / Sodium Chloride IV 0 units/kg/hr .Q9H23M [facility] 0.521 mls/hr Titration Protocol 0.1 UNITS/KG/HR Sodium Chloride 1,000 mls @ 200 mls/hr 01/27/25 05:45 01/28/25 05:44 Saline 0.9% IV Not Given .Q5H [facility] Potassium Chloride/Dextrose/Sod Cl 1,000 mls @ 150 mls/hr 01/27/25 06:00 01/28/25 06:27 D5%-1/2ns-Kcl 20 Meq/L Iv Solution IV 150 mls/hr .Q6H40M [facility] Administration Ceftriaxone Sodium 1 gm/ 50 mls @ 100 mls/hr 01/27/25 13:00 01/27/25 13:22 Sodium Chloride IVPB 100 mls/hr Q24HR [facility] Administration Protocol Lisinopril 5 mg 01/28/25 09:00 Lisinopril 5 Mg Tab PO DAILY [facility] Meloxicam 7.5 mg 01/27/25 09:00 01/27/25 09:45 Meloxicam 7.5 Mg Tab PO Not Given DAILY [facility] Metformin HCl 1,000 mg 01/27/25 17:30 01/28/25 06:27 Metformin 500 Mg Tab PO 1,000 mg BID-W/MEALS [facility] Administration Non-Formulary Medication 4.5 mg 01/27/25 14:15 01/27/25 14:28 Dulaglutide [Trulicity] SQ Not Given Mo@0900 [facility] Ondansetron HCl 4 mg 01/27/25 08:15 01/28/25 02:26 Ondansetron 4 Mg/2 Ml Vial IVP 4 mg Q6HR PRN Administration Nausea And Vomiting Pioglitazone HCl 30 mg 01/28/25 09:00 Pioglitazone 30 Mg Tab PO DAILY [facility] Objective - Vital Signs Vital signs: Vital Signs Temp 97.9 F 01/28/25 04:00 Pulse 98 01/28/25 07:00 Resp 20 01/28/25 07:00 BP 114/75 01/28/25 07:00 Pulse Ox 94 L 01/28/25 07:00 FiO2 Intake & Output 01/27/25 01/28/25 01/28/25 18:59 06:59 18:59 Intake Total 2683.489 1823.049 Output Total 1975 1700 Balance 708.489 123.049 Weight 106.594 kg 94.801 kg Intake: IV 2150 1800 D5-0.45% NaCl with KCl 2100 1800 20Meq/l 1,000 ml @ 150 mls/hr IV .Q6H40M [facility] Rx# :[id number] cefTRIAXone 1 gm In 50 Sodium Chloride 0.9% 50 ml @ 100 mls/hr IVPB Q24HR [facility] Rx#:[id number] Intake, IV Titration 33.489 23.049 Amount Insulin Regular 100 unit 33.489 23.049 In Sodium Chloride 0.9% 100 ml @ 0.1 UNITS/KG/HR 10.766 mls/hr IV .Q9H23M [facility] Rx#:[id number] Oral 500 Output: Urine 1975 1700 Other: Voiding Method Urinal Urinal # Voids 0 - Exam GENERAL: The patient is alert and oriented x3, not in any acute distress. Well developed, well nourished. HEENT: Pupils are round and equally reacting to light. EOMI. No scleral icterus. No conjunctival pallor. Normocephalic, atraumatic. No pharyngeal erythema. No thyromegaly. CARDIOVASCULAR: S1 and S2 present. No murmurs, rubs, or gallops. PULMONARY: Chest is clear to auscultation, no wheezing , no crackles. ABDOMEN: Soft, nontender, nondistended, normoactive bowel sounds. No palpable organomegaly. MUSCULOSKELETAL: No joint swelling or deformity. EXTREMITIES: No cyanosis, clubbing, or pedal edema. NEUROLOGICAL: Gross neurological examination did not reveal any focal deficits. SKIN: No rashes. no petechiae. - Labs CBC & Chem 7: 01/28/25 05:19 01/28/25 05:19 Labs: Abnormal Lab Results - Last 24 Hours (Table) 01/27/25 01/27/25 01/27/25 Range/Units 06:59 07:38 07:38 WBC (3.8-10.6) k/uL Sodium (137-145) mmol/L Potassium (3.5-5.1) mmol/L Chloride 109 H (98-107) mmol/L Carbon Dioxide 10 L (22-30) mmol/L BUN 23 H (9-20) mg/dL Creatinine (0.66-1.25) mg/dL Glucose 138 H (74-99) mg/dL POC Glucose (mg/dL) (70-110) mg/dL Phosphorus 5.0 H (2.5-4.5) mg/dL AST (17-59) U/L Urine Glucose (UA) 4+ H (Negative) Urine Ketones 4+ H (Negative) 01/27/25 01/27/25 01/27/25 Range/Units 08:27 10:58 12:04 WBC (3.8-10.6) k/uL Sodium (137-145) mmol/L Potassium 5.4 H (3.5-5.1) mmol/L Chloride (98-107) mmol/L Carbon Dioxide 13 L (22-30) mmol/L BUN 21 H (9-20) mg/dL Creatinine (0.66-1.25) mg/dL Glucose 135 H (74-99) mg/dL POC Glucose (mg/dL) 125 H 155 H (70-110) mg/dL Phosphorus (2.5-4.5) mg/dL AST (17-59) U/L Urine Glucose (UA) (Negative) Urine Ketones (Negative) 01/27/25 01/27/25 01/27/25 Range/Units 12:08 13:21 14:27 WBC (3.8-10.6) k/uL Sodium (137-145) mmol/L Potassium (3.5-5.1) mmol/L Chloride (98-107) mmol/L Carbon Dioxide (22-30) mmol/L BUN (9-20) mg/dL Creatinine (0.66-1.25) mg/dL Glucose (74-99) mg/dL POC Glucose (mg/dL) 119 H 124 H 115 H (70-110) mg/dL Phosphorus (2.5-4.5) mg/dL AST (17-59) U/L Urine Glucose (UA) (Negative) Urine Ketones (Negative) 01/27/25 01/27/25 01/27/25 Range/Units 16:09 16:59 17:02 WBC (3.8-10.6) k/uL Sodium (137-145) mmol/L Potassium (3.5-5.1) mmol/L Chloride (98-107) mmol/L Carbon Dioxide 14 L (22-30) mmol/L BUN (9-20) mg/dL Creatinine (0.66-1.25) mg/dL Glucose 159 H (74-99) mg/dL POC Glucose (mg/dL) 151 H 135 H (70-110) mg/dL Phosphorus (2.5-4.5) mg/dL AST 14 L (17-59) U/L Urine Glucose (UA) (Negative) Urine Ketones (Negative) 01/27/25 01/27/25 01/27/25 Range/Units 18:33 20:09 20:21 WBC (3.8-10.6) k/uL Sodium (137-145) mmol/L Potassium (3.5-5.1) mmol/L Chloride (98-107) mmol/L Carbon Dioxide 12 L (22-30) mmol/L BUN (9-20) mg/dL Creatinine 0.63 L (0.66-1.25) mg/dL Glucose 208 H (74-99) mg/dL POC Glucose (mg/dL) 242 H 191 H (70-110) mg/dL Phosphorus (2.5-4.5) mg/dL AST 13 L (17-59) U/L Urine Glucose (UA) (Negative) Urine Ketones (Negative) 01/27/25 01/27/25 01/27/25 Range/Units 21:06 21:59 23:03 WBC (3.8-10.6) k/uL Sodium (137-145) mmol/L Potassium (3.5-5.1) mmol/L Chloride (98-107) mmol/L Carbon Dioxide (22-30) mmol/L BUN (9-20) mg/dL Creatinine (0.66-1.25) mg/dL Glucose (74-99) mg/dL POC Glucose (mg/dL) 398 H 257 H 552 H* (70-110) mg/dL Phosphorus (2.5-4.5) mg/dL AST (17-59) U/L Urine Glucose (UA) (Negative) Urine Ketones (Negative) 01/28/25 01/28/25 01/28/25 Range/Units 02:34 02:59 04:06 WBC (3.8-10.6) k/uL Sodium (137-145) mmol/L Potassium (3.5-5.1) mmol/L Chloride (98-107) mmol/L Carbon Dioxide 20 L (22-30) mmol/L BUN (9-20) mg/dL Creatinine 0.59 L (0.66-1.25) mg/dL Glucose 160 H (74-99) mg/dL POC Glucose (mg/dL) 146 H 130 H (70-110) mg/dL Phosphorus (2.5-4.5) mg/dL AST (17-59) U/L Urine Glucose (UA) (Negative) Urine Ketones (Negative) 01/28/25 01/28/25 01/28/25 Range/Units 05:07 05:19 05:19 WBC 13.2 H (3.8-10.6) k/uL Sodium 136 L (137-145) mmol/L Potassium (3.5-5.1) mmol/L Chloride (98-107) mmol/L Carbon Dioxide 19 L (22-30) mmol/L BUN (9-20) mg/dL Creatinine 0.55 L (0.66-1.25) mg/dL Glucose 131 H (74-99) mg/dL POC Glucose (mg/dL) 131 H (70-110) mg/dL Phosphorus (2.5-4.5) mg/dL AST (17-59) U/L Urine Glucose (UA) (Negative) Urine Ketones (Negative) 01/28/25 Range/Units 05:51 WBC (3.8-10.6) k/uL Sodium (137-145) mmol/L Potassium (3.5-5.1) mmol/L Chloride (98-107) mmol/L Carbon Dioxide (22-30) mmol/L BUN (9-20) mg/dL Creatinine (0.66-1.25) mg/dL Glucose (74-99) mg/dL POC Glucose (mg/dL) 227 H (70-110) mg/dL Phosphorus (2.5-4.5) mg/dL AST (17-59) U/L Urine Glucose (UA) (Negative) Urine Ketones (Negative) Assessment and Plan Assessment: Diabetic ketoacidosis, Improving Right kidney perinephric fluid collection posteriorly suspicious for abscess or or ruptured calyx versus infection/inflammatory plus right posterior kidney six 6.8 cm, need to rule out abscess Severe metabolic acidosis, Improving History of asthma, not an active issue Plan: Patient admitted to the ICU Continue with insulin drip per protocol Pulmonary/critical care team consult Urology consult for right kidney abnormality Started on ceftriaxone Plan to repeat CAT scan in 1 week, patient informed with this recommendation and he agrees Pain management Resume diabetes medication metformin, Jardiance and Actos Labs and medication were reviewed.. Continue same treatment. Continue with symptomatic treatment. Resume home medication. Monitor labs and vitals. DVT and GI prophylaxis. Further recommendations as per clinical course of the patient DVT prophylaxis: Subcutaneous heparin GI Prophylaxis: Pepcid PT/OT: Pending Prognosis is guarded
[2025-01-28 07:58] LABS: Glucose,Whole Blood 194 mg/dL (70-110)
[2025-01-28 08:14] LABS: Glucose,Whole Blood 158 mg/dL (70-110)
[2025-01-28 08:14] LABS: Glucose,Whole Blood 390 mg/dL (70-110)
[2025-01-28 08:14] LABS: Glucose,Whole Blood 234 mg/dL (70-110)
[2025-01-28 09:01] LABS: Glucose,Whole Blood 341 mg/dL (70-110)
[2025-01-28] MEDS ORDERED: DEXTROSE 50% SYRINGE 50 ML IVP PRN ×2 (09:24)
[2025-01-28] MEDS: lisinopriL 5 MG TAB PO SCH (09:25)
[2025-01-28] MEDS: PIOGLITAZONE 30 MG TAB PO SCH (09:25)
[2025-01-28] MEDS: DAPAGLIFLOZIN PROPANEDIOL 10 MG TABLET PO SCH (09:25)
--- NOTE | 2025-01-28 09:36 | P.PN ---
Subjective Progress Note Date: 01/28/25 No acute overnight event, denies any flank pain. White count is trending down to 13. He remains afebrile Objective - Vital Signs Vital signs: Vital Signs Temp 97.8 F 01/28/25 08:00 Pulse 99 01/28/25 09:00 Resp 23 01/28/25 09:00 BP 131/81 01/28/25 09:00 Pulse Ox 96 01/28/25 08:00 FiO2 Intake & Output 01/27/25 01/28/25 01/28/25 18:59 06:59 18:59 Intake Total 2683.489 1823.049 852.058 Output Total 1974 1700 350 Balance 708.489 123.049 502.058 Weight 106.594 kg 94.801 kg Intake: IV 2150 1800 310 0.9 @ 5 10 D5-0.45% NaCl with KCl 2100 1800 300 20Meq/l 1,000 ml @ 150 mls/hr IV .Q6H40M [facility] Rx# :[id number] cefTRIAXone 1 gm In 50 Sodium Chloride 0.9% 50 ml @ 100 mls/hr IVPB Q24HR [facility] Rx#:[id number] Intake, IV Titration 33.489 23.049 2.058 Amount Insulin Regular 100 unit 33.489 23.049 2.058 In Sodium Chloride 0.9% 100 ml @ 0.1 UNITS/KG/HR 10.766 mls/hr IV .Q9H23M [facility] Rx#:[id number] Oral 500 540 Output: Urine 1974 1700 350 Other: Voiding Method Urinal Urinal # Voids 0 - Constitutional General appearance: Present: no acute distress - Gastrointestinal General gastrointestinal: Present: soft. Absent: distended, tenderness - Psychiatric Psychiatric: Present: A&O x's 3 - Labs CBC & Chem 7: 01/28/25 05:19 01/28/25 05:19 Labs: Abnormal Lab Results - Last 24 Hours (Table) 01/27/25 01/27/25 01/27/25 Range/Units 10:58 12:04 12:08 WBC (3.8-10.6) k/uL Sodium (137-145) mmol/L Potassium 5.4 H (3.5-5.1) mmol/L Carbon Dioxide 13 L (22-30) mmol/L BUN 21 H (9-20) mg/dL Creatinine (0.66-1.25) mg/dL Glucose 135 H (74-99) mg/dL POC Glucose (mg/dL) 155 H 119 H (70-110) mg/dL AST (17-59) U/L 01/27/25 01/27/25 01/27/25 Range/Units 13:21 14:27 16:09 WBC (3.8-10.6) k/uL Sodium (137-145) mmol/L Potassium (3.5-5.1) mmol/L Carbon Dioxide (22-30) mmol/L BUN (9-20) mg/dL Creatinine (0.66-1.25) mg/dL Glucose (74-99) mg/dL POC Glucose (mg/dL) 124 H 115 H 151 H (70-110) mg/dL AST (17-59) U/L 01/27/25 01/27/25 01/27/25 Range/Units 16:59 17:02 18:33 WBC (3.8-10.6) k/uL Sodium (137-145) mmol/L Potassium (3.5-5.1) mmol/L Carbon Dioxide 14 L (22-30) mmol/L BUN (9-20) mg/dL Creatinine (0.66-1.25) mg/dL Glucose 159 H (74-99) mg/dL POC Glucose (mg/dL) 135 H 242 H (70-110) mg/dL AST 14 L (17-59) U/L 01/27/25 01/27/25 01/27/25 Range/Units 20:09 20:21 21:06 WBC (3.8-10.6) k/uL Sodium (137-145) mmol/L Potassium (3.5-5.1) mmol/L Carbon Dioxide 12 L (22-30) mmol/L BUN (9-20) mg/dL Creatinine 0.63 L (0.66-1.25) mg/dL Glucose 208 H (74-99) mg/dL POC Glucose (mg/dL) 191 H 398 H (70-110) mg/dL AST 13 L (17-59) U/L 01/27/25 01/27/25 01/28/25 Range/Units 21:59 23:03 00:07 WBC (3.8-10.6) k/uL Sodium (137-145) mmol/L Potassium (3.5-5.1) mmol/L Carbon Dioxide (22-30) mmol/L BUN (9-20) mg/dL Creatinine (0.66-1.25) mg/dL Glucose (74-99) mg/dL POC Glucose (mg/dL) 257 H 552 H* 390 H (70-110) mg/dL AST (17-59) U/L 01/28/25 01/28/25 01/28/25 Range/Units 01:07 02:15 02:34 WBC (3.8-10.6) k/uL Sodium (137-145) mmol/L Potassium (3.5-5.1) mmol/L Carbon Dioxide 20 L (22-30) mmol/L BUN (9-20) mg/dL Creatinine 0.59 L (0.66-1.25) mg/dL Glucose 160 H (74-99) mg/dL POC Glucose (mg/dL) 234 H 158 H (70-110) mg/dL AST (17-59) U/L 01/28/25 01/28/25 01/28/25 Range/Units 02:59 04:06 05:07 WBC (3.8-10.6) k/uL Sodium (137-145) mmol/L Potassium (3.5-5.1) mmol/L Carbon Dioxide (22-30) mmol/L BUN (9-20) mg/dL Creatinine (0.66-1.25) mg/dL Glucose (74-99) mg/dL POC Glucose (mg/dL) 146 H 130 H 131 H (70-110) mg/dL AST (17-59) U/L 01/28/25 01/28/25 01/28/25 Range/Units 05:19 05:19 05:51 WBC 13.2 H (3.8-10.6) k/uL Sodium 136 L (137-145) mmol/L Potassium (3.5-5.1) mmol/L Carbon Dioxide 19 L (22-30) mmol/L BUN (9-20) mg/dL Creatinine 0.55 L (0.66-1.25) mg/dL Glucose 131 H (74-99) mg/dL POC Glucose (mg/dL) 227 H (70-110) mg/dL AST (17-59) U/L 01/28/25 01/28/25 Range/Units 07:57 09:00 WBC (3.8-10.6) k/uL Sodium (137-145) mmol/L Potassium (3.5-5.1) mmol/L Carbon Dioxide (22-30) mmol/L BUN (9-20) mg/dL Creatinine (0.66-1.25) mg/dL Glucose (74-99) mg/dL POC Glucose (mg/dL) 194 H 341 H (70-110) mg/dL AST (17-59) U/L Assessment and Plan Assessment: 49-year-old male admitted to the hospital with DKA. His symptoms vital and lab work are not consistent with a renal abscess, as he is having a mild flank pain, with no fevers. Reviewing both images there is some progression, but I do not clearly see any drainable abscess at this time, as on imaging there is focal area within the renal parenchyma which could be more of a focal pyelonephritis and an adjacent fluid collection is difficult to assess whether this is infected or not given the lack of air around within. -Continue IV antibiotics while inpatient, he can be transitioned to p.o. antibiotics for 4 weeks at time of discharge, antibiotics based on previous susceptibilities with his Klebsiella UTIs. -He will require outpatient follow-up imaging to assess for resolution
[2025-01-28 10:04] LABS: Glucose,Whole Blood 278 mg/dL (70-110)
[2025-01-28] MEDS: INSULIN GLARGINE (LANTUS) 100 UNIT/ML SYR SQ SCH (10:32)
[2025-01-28] MEDS: NICOTINE 21MG/24HR PATCH TRANSDERM SCH (10:32)
--- NOTE | 2025-01-28 10:52 | P.CNPUL ---
History of Present Illness Consult date: 01/28/25 Requesting physician: Jaron Avila Chief complaint: ICU management History of present illness: Patient is a 49-year-old male with past medical history of diabetes mellitus, asthma, tobacco dependence presented to the ED with periumbilical abdominal pain. The patient mentions that his pain started 3 days ago. The pain was nonradiating and sharp stabbing in nature. Associated with that he also experienced nausea and vomiting along with poor appetite. Denies having diarrhea. The last bowel movement was 2 days prior to presentation. He mentions taking 3 pills for diabetes along with Trulicity injection. He also reported mild right-sided flank pain. The patient had a recent hospital admission last month with pyelonephritis with a urine culture and blood culture grew Klebsiella at the time. He did have a CT scan last month which showed a focal area of pyelonephritis which has slightly progressed on the CT scan obtained at this admission, slightly more discrete collection adjacent to the kidney. Denies fever, chills, shortness of breath, chest pain, dysuria. Today at the time of this interview the patient mentions notes a significant improvement in his symptoms. Currently complains of sore throat. Vitals on admission temperature 98.1 F, [place] 113 bpm, RR 19, BP 116/72, oxygen saturation 96% on room air. Labs on admission show WBC 15.1, RBC 5.93, hemoglobin 16.1, INR 1.1, sodium 141, potassium 5.3, bicarb 7, anion gap 32, BUN 24, creatinine 1.05, glucose 248, AST 13, lipase 290, acetone was positive. Labs today show WBC 13.2, sodium 136, bicarb 19, anion gap 14, creatinine 0.55, glucose 194. VBG showed pH 7.14, pCO2 32, bicarb 11. UA showed 4+ glucose and 4+ ketones. EKG showed sinus tachycardia with rate 111 bpm and QTc [address] scan showed worsening perinephric fluid posterior to the right kidney, consider calyx rupture versus infection/inflammatory process, nonspecific 6.8 cm moderate-sized thin-walled fluid collection or cyst in the posterior aspect of the right kidney at the area of diminished perfusion on prior exam, new abscess needs to be considered among possible etiologies. Past Medical History Past Medical History: Asthma, Diabetes Mellitus History of Any Multi-Drug Resistant Organisms: None Reported Past Surgical History: Orthopedic Surgery Past Anesthesia/Blood Transfusion Reactions: No Reported Reaction Past Psychological History: No Psychological Hx Reported Smoking Status: Current every day smoker Past Alcohol Use History: None Reported Past Drug Use History: None Reported Medications and Allergies Home Medications Medication Instructions Recorded Confirmed Type Atorvastatin [Lipitor] 20 mg PO HS 01/27/25 01/27/25 History Dulaglutide [Trulicity] 4.5 mg SQ MO 01/27/25 01/27/25 History Empagliflozin [Jardiance] 25 mg PO DAILY 01/27/25 01/27/25 History Gabapentin 600 mg PO TID 01/27/25 01/27/25 History HYDROcodone/APAP 5-325MG [[place] 1 tab PO Q4HR PRN 01/27/25 01/27/25 History 5-325] HYDROcodone/APAP 7.5-325MG [[place] 1 tab PO TID PRN 01/27/25 01/27/25 History 7.5-325] Ibuprofen [Motrin] 600 mg PO Q6H PRN 01/27/25 01/27/25 History Ibuprofen [Motrin] 800 mg PO TID PRN 01/27/25 01/27/25 History Naproxen Sodium [Aleve] 220 - 440 mg PO BID PRN 01/27/25 01/27/25 History Omeprazole 20 mg PO DAILY 01/27/25 01/27/25 History Pioglitazone [Actos] 30 mg PO DAILY 01/27/25 01/27/25 History lisinopriL [Zestril] 5 mg PO DAILY 01/27/25 01/27/25 History metFORMIN HCL [Glucophage] 1,000 mg PO BID 01/27/25 01/27/25 History Allergies Allergy/AdvReac Type Severity Reaction Status Date / Time No Known Allergies Allergy Verified 01/27/25 06:40 Physical Exam Vitals: Vital Signs Temp Pulse Resp BP Pulse Ox 01/28/25 09:00 99 23 131/81 01/28/25 08:00 97.8 F 99 21 131/81 96 01/28/25 07:00 98 20 114/75 94 L 01/28/25 06:00 98 22 131/90 98 01/28/25 05:00 96 14 126/82 96 01/28/25 04:00 97.9 F 98 19 127/89 96 01/28/25 03:00 102 H 19 132/86 96 01/28/25 02:18 98 26 H 135/97 98 01/28/25 00:00 98.1 F 96 18 136/91 98 01/27/25 23:00 112 H 23 132/76 97 01/27/25 22:00 103 H 19 129/87 98 01/27/25 21:00 129 H 26 H 135/74 96 01/27/25 20:00 97.9 F 102 H 20 120/86 98 01/27/25 19:00 99 18 130/93 98 01/27/25 18:00 97 21 138/79 96 01/27/25 17:00 104 H 20 142/87 98 01/27/25 16:00 97.9 F 100 14 140/89 97 01/27/25 15:00 100 22 127/69 96 01/27/25 14:00 102 H 21 125/87 93 L 01/27/25 13:00 109 H 23 140/95 97 01/27/25 12:00 98.2 F 101 H 22 110/79 97 01/27/25 11:00 110 H 18 128/83 96 Intake and Output 01/27/25 01/28/25 01/28/25 22:59 06:59 14:59 Intake Total 1481.576 6109.335 852.058 Output Total 950 1350 350 Balance 752.023 21.335 502.058 Intake: IV 1200 1350 310 0.9 @ 5 10 D5-0.45% NaCl with KCl 1200 1350 300 20Meq/l 1,000 ml @ 150 mls/hr IV .Q6H40M [facility] Rx# :[id number] Intake, IV Titration 2.023 21.335 2.058 Amount Insulin Regular 100 unit 2.023 21.335 2.058 In Sodium Chloride 0.9% 100 ml @ 0.1 UNITS/KG/HR 10.766 mls/hr IV .Q9H23M [facility] Rx#:[id number] Oral 500 540 Output: Urine 950 1350 350 Other: Voiding Method Urinal Urinal Urinal # Voids 0 0 Weight 94.801 kg GENERAL EXAM: Alert, 49-year-old male, on room air, fairly comfortable in no apparent distress. HEAD: Normocephalic. EYES: Normal reaction of pupils, equal size. NOSE: Clear with pink turbinates. THROAT: No erythema or exudates. NECK: No masses, no JVD. CHEST: No chest wall deformity. LUNGS: Equal air entry with no crackles, wheeze, rhonchi or dullness. CVS: S1 and S2 normal with no audible murmur, regular rhythm. ABDOMEN: No hepatosplenomegaly, normal bowel sounds, no guarding or rigidity. SPINE: No scoliosis or deformity SKIN: No rashes CENTRAL NERVOUS SYSTEM: No focal deficits, tone is normal in all 4 extremities. EXTREMITIES: No peripheral edema. No clubbing, no cyanosis. Peripheral pulses are intact. Results - Laboratory Findings CBC and BMP: 01/28/25 05:19 01/28/25 05:19 PT/INR, D-dimer PT 11.7 sec (10.0-12.5) 01/27/25 03:43 INR 1.1 (<1.2) 01/27/25 03:43 Abnormal lab findings: Abnormal Labs 01/27/25 01/27/25 01/27/25 03:43 03:43 05:34 WBC 15.1 H RBC 5.93 H Neutrophils # 12.4 H VBG pH 7.14 L* VBG pCO2 32 L VBG HCO3 11 L Sodium Potassium 5.3 H Chloride Carbon Dioxide 7 L* BUN 24 H Creatinine Glucose 248 H POC Glucose (mg/dL) Phosphorus AST 13 L Urine Glucose (UA) Urine Ketones 01/27/25 01/27/25 01/27/25 06:18 06:59 07:03 WBC RBC Neutrophils # VBG pH VBG pCO2 VBG HCO3 Sodium Potassium Chloride Carbon Dioxide BUN Creatinine Glucose POC Glucose (mg/dL) 201 H 172 H Phosphorus AST Urine Glucose (UA) 4+ H Urine Ketones 4+ H 01/27/25 01/27/25 01/27/25 07:38 07:38 08:27 WBC RBC Neutrophils # VBG pH VBG pCO2 VBG HCO3 Sodium Potassium Chloride 109 H Carbon Dioxide 10 L BUN 23 H Creatinine Glucose 138 H POC Glucose (mg/dL) 125 H Phosphorus 5.0 H AST Urine Glucose (UA) Urine Ketones 01/27/25 01/27/25 01/27/25 10:58 12:04 12:08 WBC RBC Neutrophils # VBG pH VBG pCO2 VBG HCO3 Sodium Potassium 5.4 H Chloride Carbon Dioxide 13 L BUN 21 H Creatinine Glucose 135 H POC Glucose (mg/dL) 155 H 119 H Phosphorus AST Urine Glucose (UA) Urine Ketones 01/27/25 01/27/25 01/27/25 13:21 14:27 16:09 WBC RBC Neutrophils # VBG pH VBG pCO2 VBG HCO3 Sodium Potassium Chloride Carbon Dioxide BUN Creatinine Glucose POC Glucose (mg/dL) 124 H 115 H 151 H Phosphorus AST Urine Glucose (UA) Urine Ketones 01/27/25 01/27/25 01/27/25 16:59 17:02 18:33 WBC RBC Neutrophils # VBG pH VBG pCO2 VBG HCO3 Sodium Potassium Chloride Carbon Dioxide 14 L BUN Creatinine Glucose 159 H POC Glucose (mg/dL) 135 H 242 H Phosphorus AST 14 L Urine Glucose (UA) Urine Ketones 01/27/25 01/27/25 01/27/25 20:09 20:21 21:06 WBC RBC Neutrophils # VBG pH VBG pCO2 VBG HCO3 Sodium Potassium Chloride Carbon Dioxide 12 L BUN Creatinine 0.63 L Glucose 208 H POC Glucose (mg/dL) 191 H 398 H Phosphorus AST 13 L Urine Glucose (UA) Urine Ketones 01/27/25 01/27/25 01/28/25 21:59 23:03 00:07 WBC RBC Neutrophils # VBG pH VBG pCO2 VBG HCO3 Sodium Potassium Chloride Carbon Dioxide BUN Creatinine Glucose POC Glucose (mg/dL) 257 H 552 H* 390 H Phosphorus AST Urine Glucose (UA) Urine Ketones 01/28/25 01/28/25 01/28/25 01:07 02:15 02:34 WBC RBC Neutrophils # VBG pH VBG pCO2 VBG HCO3 Sodium Potassium Chloride Carbon Dioxide 20 L BUN Creatinine 0.59 L Glucose 160 H POC Glucose (mg/dL) 234 H 158 H Phosphorus AST Urine Glucose (UA) Urine Ketones 01/28/25 01/28/25 01/28/25 02:59 04:06 05:07 WBC RBC Neutrophils # VBG pH VBG pCO2 VBG HCO3 Sodium Potassium Chloride Carbon Dioxide BUN Creatinine Glucose POC Glucose (mg/dL) 146 H 130 H 131 H Phosphorus AST Urine Glucose (UA) Urine Ketones 01/28/25 01/28/25 01/28/25 05:19 05:19 05:51 WBC 13.2 H RBC Neutrophils # VBG pH VBG pCO2 VBG HCO3 Sodium 136 L Potassium Chloride Carbon Dioxide 19 L BUN Creatinine 0.55 L Glucose 131 H POC Glucose (mg/dL) 227 H Phosphorus AST Urine Glucose (UA) Urine Ketones 01/28/25 01/28/25 01/28/25 07:57 09:00 10:02 WBC RBC Neutrophils # VBG pH VBG pCO2 VBG HCO3 Sodium Potassium Chloride Carbon Dioxide BUN Creatinine Glucose POC Glucose (mg/dL) 194 H 341 H 278 H Phosphorus AST Urine Glucose (UA) Urine Ketones Assessment and Plan Assessment: Diabetic ketoacidosis Nausea and vomiting Suspected right kidney abscess, right kidney perinephric fluid collection posteriorly suspicious for abscess or a ruptured calyx versus infection/inflammatory plus right posterior kidney 6.8 cm cyst Tobacco dependence Sore throat, afebrile History of asthma, not in acute exacerbation Neuropathy Hypertension Constipation Plan: Continue Insulin drip at 0.52 units per hour, switch to Lantus 15 units daily and Insulin sliding scale Blood glucose monitoring Q1H Continue 0.9 Normal saline 5 mL/h Continue D50.45 with 20 meq of KCl at 150 mL/h Continue home Dapagliflozin 10 mg daily, Trulicity 4.5 mg SQ, Pioglitazone 30 mg p.o. daily Continue Ceftriaxone 1 g IVPB every 24 hours Urology following, recommend repeating CT scan in a week and transitioning to PO antibiotics upon discharge based on previous susceptibilities with his Klebsiella UTI Obtain Procalcitonin Continue GI and DVT prophylaxis Time with Patient: Greater than 30
[2025-01-28 11:02] LABS: African American GFR (CKD) >90 (>60 ml/min/1.73 sqM); Anion Gap 8 mmol/L; Blood Urea Nitrogen 10 mg/dL (9-20); Carbon Dioxide 21 mmol/L (22-30); Chloride 102 mmol/L (98-107); Glucose 271 mg/dL (74-99); Non-African American GFR(CKD) >90 (>60 ml/min/1.73 sqM); Phosphorus 2.2 mg/dL (2.5-4.5); Potassium 4.3 mmol/L (3.5-5.1); Sodium 131 mmol/L (137-145)
[2025-01-28 11:09] LABS: Glucose,Whole Blood 250 mg/dL (70-110)
[2025-01-28 12:22] LABS: Glucose,Whole Blood 181 mg/dL (70-110)
[2025-01-28] MEDS: INSULIN LISPRO (HumaLOG) 100 UNIT/ML 10 mL VL SQ SCH (12:28)
[2025-01-28 15:56] LABS: Glucose,Whole Blood 213 mg/dL (70-110)
[2025-01-28 18:16] LABS: African American GFR (CKD) >90 (>60 ml/min/1.73 sqM); Anion Gap 8 mmol/L; Blood Urea Nitrogen 10 mg/dL (9-20); Calcium 8.9 mg/dL (8.4-10.2); Carbon Dioxide 22 mmol/L (22-30); Chloride 101 mmol/L (98-107); Glucose 237 mg/dL (74-99); Non-African American GFR(CKD) >90 (>60 ml/min/1.73 sqM); Phosphorus 2.5 mg/dL (2.5-4.5); Sodium 131 mmol/L (137-145)
[2025-01-28 20:16] LABS: Glucose,Whole Blood 214 mg/dL (70-110)
[2025-01-29 08:17] LABS: Glucose,Whole Blood 208 mg/dL (70-110)
[2025-01-29 08:59] VITALS: BP 133/80; PULSE 118; RESP 18; TEMP 98
--- NOTE | 2025-01-29 09:58 | P.PN ---
Subjective Progress Note Date: 01/29/25 Principal diagnosis: Hospital course: Diabetic ketoacidosis Patient is a 49-year-old male with past medical history of diabetes mellitus, asthma, tobacco dependence presented to the ED with periumbilical abdominal pain. The patient mentions that his pain started 3 days ago. The pain was nonradiating and sharp stabbing in nature. Associated with that he also experienced nausea and vomiting along with poor appetite. Denies having diarrhea. The last bowel movement was 2 days prior to presentation. He mentions taking 3 pills for diabetes along with Trulicity injection. He also reported mild right-sided flank pain. The patient had a recent hospital admission last month with pyelonephritis with a urine culture and blood culture grew Klebsiella at the time. He did have a CT scan last month which showed a focal area of pyelonephritis which has slightly progressed on the CT scan obtained at this admission, slightly more discrete collection adjacent to the kidney. Denies fever, chills, shortness of breath, chest pain, dysuria. Today at the time of this interview the patient mentions notes a significant improv ement in his symptoms. Currently complains of sore throat. Vitals on admission temperature 98.1 F, [place] 113 bpm, RR 19, BP 116/72, oxygen saturation 96% on room air. Labs on admission show WBC 15.1, RBC 5.93, hemoglobin 16.1, INR 1.1, sodium 141, potassium 5.3, bicarb 7, anion gap 32, BUN 24, creatinine 1.05, glucose 248, AST 13, lipase 290, acetone was positive. Labs today show WBC 13.2, sodium 136, bicarb 19, anion gap 14, creatinine 0.55, glucose 194. VBG showed pH 7.14, pCO2 32, bicarb 11. UA showed 4+ glucose and 4+ ketones. EKG showed sinus tachycardia with rate 111 bpm and QTc [address] scan showed worsening perinephric fluid posterior to the right kidney, consider calyx rupture versus infection/inflammatory process, nonspecific 6.8 cm moderate-sized thin-walled fluid collection or cyst in the posterior aspect of the right kidney at the area of diminished perfusion on prior exam, new abscess needs to be considered among possible etiologies. 01/29/25: Patient seen and examined at bedside today. He reports mild abdominal discomfort. He is tachycardic with rate of 118. Labs show anion gap 8, bicarb 22, glucose 208. His A1c is 13. Pro-Herbert is 0.13. He continues to be on ceftriaxone 1 g IVPB every 24 hours and insulin drip has been discontinued. He is now on large glargine 15 units daily and insulin sliding scale along with farxiga, Trulicity, pioglitazone, metformin. Patient can be moved out of ICU to the general medical floor. Objective - Vital Signs Vital signs: Vital Signs Temp 98 F 01/29/25 08:00 Pulse 118 H 01/29/25 08:00 Resp 18 01/29/25 08:00 BP 133/80 01/29/25 08:00 Pulse Ox 95 01/29/25 08:00 FiO2 Intake & Output 01/28/25 01/29/25 01/29/25 18:59 06:59 18:59 Intake Total 1961.941 Output Total 2024 Balance -63.059 Weight 97.1 kg Intake: IV 665 0.9 @ 5 15 D5-0.45% NaCl with KCl 600 20Meq/l 1,000 ml @ 150 mls/hr IV .Q6H40M [facility] Rx# :[id number] cefTRIAXone 1 gm In 50 Sodium Chloride 0.9% 50 ml @ 100 mls/hr IVPB Q24HR [facility] Rx#:[id number] Intake, IV Titration 6.941 Amount Insulin Regular 100 unit 6.941 In Sodium Chloride 0.9% 100 ml @ 0.1 UNITS/KG/HR 10.766 mls/hr IV .Q9H23M [facility] Rx#:[id number] Oral 1290 Output: Urine 2024 Other: Voiding Method Urinal Urinal # Bowel Movements 1 - Exam GENERAL EXAM: Alert, 49-year-old male, on room air, fairly comfortable in no apparent distress. HEAD: Normocephalic. EYES: Normal reaction of pupils, equal size. NOSE: Clear with pink turbinates. THROAT: No erythema or exudates. NECK: No masses, no JVD. CHEST: No chest wall deformity. LUNGS: Equal air entry with no crackles, wheeze, rhonchi or dullness. CVS: S1 and S2 normal with no audible murmur, regular rhythm. ABDOMEN: No hepatosplenomegaly, normal bowel sounds, no guarding or rigidity. SPINE: No scoliosis or deformity SKIN: No rashes CENTRAL NERVOUS SYSTEM: No focal deficits, tone is normal in all 4 extremities. EXTREMITIES: No peripheral edema. No clubbing, no cyanosis. Peripheral pulses are intact. - Labs CBC & Chem 7: 01/28/25 05:19 01/28/25 17:47 Labs: Abnormal Lab Results - Last 24 Hours (Table) 01/28/25 01/28/25 01/28/25 Range/Units 10:02 10:36 11:07 Sodium 131 L (137-145) mmol/L Carbon Dioxide 21 L (22-30) mmol/L Creatinine 0.54 L (0.66-1.25) mg/dL Glucose 271 H (74-99) mg/dL POC Glucose (mg/dL) 278 H 250 H (70-110) mg/dL Hemoglobin A1c (<=6.0) % Phosphorus 2.2 L (2.5-4.5) mg/dL 01/28/25 01/28/25 01/28/25 Range/Units 12:20 15:54 17:47 Sodium 131 L (137-145) mmol/L Carbon Dioxide (22-30) mmol/L Creatinine 0.61 L (0.66-1.25) mg/dL Glucose 237 H (74-99) mg/dL POC Glucose (mg/dL) 181 H 213 H (70-110) mg/dL Hemoglobin A1c (<=6.0) % Phosphorus (2.5-4.5) mg/dL 01/28/25 01/29/25 01/29/25 Range/Units 20:15 05:22 08:15 Sodium (137-145) mmol/L Carbon Dioxide (22-30) mmol/L Creatinine (0.66-1.25) mg/dL Glucose (74-99) mg/dL POC Glucose (mg/dL) 214 H 208 H (70-110) mg/dL Hemoglobin A1c 13.0 H (<=6.0) % Phosphorus (2.5-4.5) mg/dL Assessment and Plan Assessment: Diabetic ketoacidosis Nausea and vomiting Suspected right kidney abscess, right kidney perinephric fluid collection p osteriorly suspicious for abscess or a ruptured calyx versus infection/inflammatory plus right posterior kidney 6.8 cm cyst Tobacco dependence Sore throat, afebrile History of asthma, not in acute exacerbation Neuropathy Hypertension Constipation Plan: Continue Lantus 15 units daily and Insulin sliding scale Blood glucose monitoring Q1H Continue home Dapagliflozin 10 mg daily, Trulicity 4.5 mg SQ, Pioglitazone 30 mg p.o. daily and Metformin 1000 mg BID Continue Ceftriaxone 1 g IVPB every 24 hours Urology following, recommend repeating CT scan in a week and transitioning to PO antibiotics upon discharge based on previous susceptibilities with his Klebsiella UTI Continue GI and DVT prophylaxis Patient can be moved out of the ICU to the general medical floor Time with Patient: Less than 30
--- NOTE | 2025-01-29 11:28 | P.PN ---
Subjective No acute overnight event,, denies any flank pain, remains afebrile Objective - Vital Signs Vital signs: Vital Signs Temp 98 F 01/29/25 08:00 Pulse 118 H 01/29/25 08:00 Resp 18 01/29/25 08:00 BP 133/80 01/29/25 08:00 Pulse Ox 95 01/29/25 08:00 FiO2 Intake & Output 01/28/25 01/29/25 01/29/25 18:59 06:59 18:59 Intake Total 1961.941 Output Total 2024 Balance -63.059 Weight 97.1 kg Intake: IV 665 0.9 @ 5 15 D5-0.45% NaCl with KCl 600 20Meq/l 1,000 ml @ 150 mls/hr IV .Q6H40M [facility] Rx# :[id number] cefTRIAXone 1 gm In 50 Sodium Chloride 0.9% 50 ml @ 100 mls/hr IVPB Q24HR [facility] Rx#:[id number] Intake, IV Titration 6.941 Amount Insulin Regular 100 unit 6.941 In Sodium Chloride 0.9% 100 ml @ 0.1 UNITS/KG/HR 10.766 mls/hr IV .Q9H23M [facility] Rx#:[id number] Oral 1290 Output: Urine 2024 Other: Voiding Method Urinal Urinal Urinal # Bowel Movements 1 - Constitutional General appearance: Present: no acute distress - Gastrointestinal General gastrointestinal: Present: soft. Absent: distended, tenderness - Labs CBC & Chem 7: 01/28/25 05:19 01/28/25 17:47 Labs: Abnormal Lab Results - Last 24 Hours (Table) 01/28/25 01/28/25 01/28/25 Range/Units 12:20 15:54 17:47 Sodium 131 L (137-145) mmol/L Creatinine 0.61 L (0.66-1.25) mg/dL Glucose 237 H (74-99) mg/dL POC Glucose (mg/dL) 181 H 213 H (70-110) mg/dL Hemoglobin A1c (<=6.0) % 01/28/25 01/29/25 01/29/25 Range/Units 20:15 05:22 08:15 Sodium (137-145) mmol/L Creatinine (0.66-1.25) mg/dL Glucose (74-99) mg/dL POC Glucose (mg/dL) 214 H 208 H (70-110) mg/dL Hemoglobin A1c 13.0 H (<=6.0) % Assessment and Plan Assessment: 49-year-old male admitted to the hospital with DKA. His symptoms vital and lab work are not consistent with a renal abscess, as he is having a mild flank pain, with no fevers. Reviewing both images there is some progression, but I do not clearly see any drainable abscess at this time, as on imaging there is focal area within the renal parenchyma which could be more of a focal pyelonephritis and an adjacent fluid collection is difficult to assess whether this is infected or not given the lack of air around within. -Continue IV antibiotics while inpatient, he can be transitioned to p.o. antibiotics for 4 weeks at time of discharge, antibiotics based on previous susceptibilities with his Klebsiella UTIs. -He will require outpatient follow-up imaging to assess for resolution -Ok for discharge from urology standpoint
--- NOTE | 2025-01-29 16:15 | P.DS ---
Providers Date of admission: 01/27/25 05:46 Attending physician: Renard Quiroga Consults: 01/27/25 06:38 Consult Physician Routine Consulting Provider: Gagan Miner Consult Reason/Comments: DKA/ICU management Do you want consulting provider notified?: Already Contacted 01/27/25 06:49 Consult Physician Routine Consulting Provider: Nilesh Ellis Consult Reason/Comments: perinephric fluid Do you want consulting provider notified?: Already Contacted Primary care physician: [facility] Hospital Course: Diagnoses: Diabetic ketoacidosis, Improving Right kidney perinephric fluid collection posteriorly suspicious for abscess or or ruptured calyx versus infection/inflammatory plus right posterior kidney six 6.8 cm, need to rule out abscess Severe metabolic acidosis, Improving History of asthma, not an active issue Hospital course: This is a pleasant 49 years old male with past medical history of diabetes mellitus and multiple medical problems Presents because of worsening abdominal pain of 3 days duration about 7/10 severity central nonradiating felt like sharp and stabbing and is constant with no significant relieving or precipitating factors Patient was found to have DKA on admission. CT of the abdomen showing right kidney perinephric fluid posteriorly and there is secondary to infection/inflammatory versus rupture right kidney calyx also there is posterior right kidney cyst that was 6.8 cm need to rule out abscess. Because of this patient was admitted to the ICU and treated with insulin drip per protocol Urology team consult was obtained who evaluated the patient and the CAT scan. Urologist recommended ceftriaxone and repeat CAT scan in 1 week. Patient clinically was not behaving like abscess. No overt fever or leukocytosis and his symptoms resolved quickly once we controlled his sugar. We monitor him for 24 to 48 hours and he remains asymptomatic. His glucose controlled his anion gap was closed. Patient resumed his regimen of oral antidiabetic medication with metformin, Jardiance and Actos. And he was started on Lantus insulin 15 units daily with recommendation to stop Trulicity upon discharge and he agreed. Glucometer provided for him upon discharge with recommendation both verbal and written for closely monitoring glucose. Also signs symptoms of hypo and hyperglycemia explained for him in details and he verbalized understanding as well. Patient antibiotic was ceftriaxone, previous culture from previous admission showing Klebsiella at which sensitive also patient responded clinically to this antibiotic. Patient will be discharged on oral antibiotic for 4 to 5 weeks with close monitoring as an outpatient. Please instruction explained for the patient in details and he verbalized understanding acceptance again On the day of discharge he is fully awake and oriented he denies chest pain or dyspnea no abdominal pain no urinary symptoms. No other new complaint and he agrees to go home. Patient was cleared for discharge by urologist. Problems and management plan were discussed with the patient and he verbalized understanding and acceptance Patient was found stable and can be discharged home in guarded prognosis however he needs follow-up as an outpatient. Patient was instructed to follow up with PCP within one week and patient agrees Patient was instructed to follow-up with urologist Dr. Johnson in 1 week and he agrees with recommendation to repeat CAT scan in one week. Physical exam Gen: patient is a AAOx3, no distress CVS: S1-S2, RRR, no murmur Lungs: B/L CTA, no wheezing Abdomen: soft, no distention, no tenderness, positive bowel sounds Extremity: no leg edema or induration Time spent more than 35 minutes Patient Condition at Discharge: Critical Plan - Discharge Summary New Discharge Prescriptions: New cefuroxime axetiL [Ceftin] 500 mg PO BID #74 tab Nicotine 21Mg/24Hr Patch [Habitrol] 1 patch TRANSDERM DAILY #3 patch Insulin Glargine (Lantus) [Lantus Vial] 15 unit SQ DAILY@0700 #10 ml Continue metFORMIN HCL [Glucophage] 1,000 mg PO BID lisinopriL [Zestril] 5 mg PO DAILY Omeprazole 20 mg PO DAILY HYDROcodone/APAP 7.5-325MG [[place] 7.5-325] 1 tab PO TID PRN PRN Reason: Pain Gabapentin 600 mg PO TID HYDROcodone/APAP 5-325MG [[place] 5-325] 1 tab PO Q4HR PRN PRN Reason: Pain Pioglitazone [Actos] 30 mg PO DAILY Empagliflozin [Jardiance] 25 mg PO DAILY Atorvastatin [Lipitor] 20 mg PO HS Ibuprofen [Motrin] 600 mg PO Q6H PRN 3 Days #0 PRN Reason: Pain Discontinued Ibuprofen [Motrin] 800 mg PO TID PRN PRN Reason: back pain Naproxen Sodium [Aleve] 220 - 440 mg PO BID PRN PRN Reason: Pain Dulaglutide [Trulicity] 4.5 mg SQ MO Discharge Medication List Atorvastatin [Lipitor] 20 mg PO HS 01/27/25 [History] Empagliflozin [Jardiance] 25 mg PO DAILY 01/27/25 [History] Gabapentin 600 mg PO TID 01/27/25 [History] HYDROcodone/APAP 5-325MG [[place] 5-325] 1 tab PO Q4HR PRN 01/27/25 [History] HYDROcodone/APAP 7.5-325MG [[place] 7.5-325] 1 tab PO TID PRN 01/27/25 [History] Omeprazole 20 mg PO DAILY 01/27/25 [History] Pioglitazone [Actos] 30 mg PO DAILY 01/27/25 [History] lisinopriL [Zestril] 5 mg PO DAILY 01/27/25 [History] metFORMIN HCL [Glucophage] 1,000 mg PO BID 01/27/25 [History] Ibuprofen [Motrin] 600 mg PO Q6H PRN 3 Days #0 01/29/25 [Rx] Insulin Glargine (Lantus) [Lantus Vial] 15 unit SQ DAILY@0700 #10 ml 01/29/25 [Rx] Nicotine 21Mg/24Hr Patch [Habitrol] 1 patch TRANSDERM DAILY #3 patch 01/29/25 [Rx] cefuroxime axetiL [Ceftin] 500 mg PO BID #74 tab 01/29/25 [Rx] Follow up Appointment(s)/Referral(s): Doyle Toro MD [REFERRING] - 1 Week (diabetes doctor ) Vipin Johnson MD [STAFF PHYSICIAN] - 1 Week Lupis Guzmán MD [Primary Care Provider] - 1-2 days Activity/Diet/Wound Care/Special Instructions: Plan on repeating CT abdomen within a week to reassess any changes, please follow up with the urologist for this purpose heart healthy diet, low carbohydrate diet 1800 k ryan per day activity is restricted till you see your doctor We recommend to check your glucose 4 times a day before each meal and at bedtime. Keep the results in a log book and bring it your doctor on your appointment date If your glucose less than 70 or more than 400 then come to emergency room Discharge Disposition: HOME SELF-CARE
== END 2025-01-29 11:25 | disposition home or self-care (01) | DRG 420 ==
LOC: EC 03:15 → 2SICU 05:46
PROVIDERS: ADMIT Hospitalist; ATTEND Hospitalist
DX: E11.10 Type 2 diabetes mellitus with ketoacidosis without coma (principal); E11.42 Type 2 diabetes mellitus with diabetic polyneuropathy; F17.210 Nicotine dependence, cigarettes, uncomplicated; I10 Essential (primary) hypertension; J45.909 Unspecified asthma, uncomplicated; R00.0 Tachycardia, unspecified; K59.00 Constipation, unspecified; Z79.4 Long term (current) use of insulin; Z79.1 Long term (current) use of non-steroidal anti-inflammatories (NSAID); Z79.84 Long term (current) use of oral hypoglycemic drugs; Z79.899 Other long term (current) drug therapy
CPT/HCPCS: 36415; 74177; 80048; 80051; 80053; 81003; 82009; 82565; 82803; 82947; 83036; 83690; 84100; 84145; 84520; 85025; 85027; 85610; 85730; 93005; 96361; 96374; 96375; 99285

== ENCOUNTER → 2025-02-20 | Outpatient (CLI) | payer OTHER ==
[2025-02-20 08:50] LABS: African American GFR (CKD) >90 (>60 ml/min/1.73 sqM); Blood Urea Nitrogen 13 mg/dL (9-20); Non-African American GFR(CKD) >90 (>60 ml/min/1.73 sqM)
--- NOTE | 2025-02-20 11:44 | CT ---
EXAMINATION TYPE: CT abdomen w con DATE OF EXAM: 02/20/2025 9:29 AM COMPARISON: 01/27/2025 CLINICAL INDICATION: Male, 49 years old with history of pain, N15.1 RENAL ABSCESS; Right renal absces s. TECHNIQUE: CT of the abdomen after administration of:100ml mL of Isovue 300 with IV Contrast, delayed images through the kidneys and coronal/sagittal reconstructions were performed. CT DLP: 1517.6 mGycm, Automated exposure control for dose reduction was used. FINDINGS: LOWER CHEST: Unremarkable ABDOMEN LIVER: Borderline enlarged at 17.9 cm. Portal venous system is patent. No focal lesion seen. GALLBLADDER AND BILE DUCTS: Unremarkable. PANCREAS: Unremarkable. SPLEEN: Unremarkable. ADRENAL GLANDS: Tiny 1 cm nodular prominence left adrenal gland is unchanged. KIDNEYS AND URETERS: The posterior right renal abscess continues to measure 4.9 cm. However, the poor ly defined fluid and inflammatory soft tissue in the posterior right comparison renal space has furth er organized and multiple additional abscesses or developing, posteromedially at the mid pole abuttin g the paraspinal musculature measuring 4.3 cm, just below at the lower pole level measuring 4.3 cm, i nferiorly measuring 5.1 cm, and posterolaterally at the lower pole measuring 6.8 x 3.4 cm. Many of th cristopher areas are likely contiguous. PELVIS Not imaged ABDOMEN STOMACH AND BOWEL: Large amount of ingested mottled distending the stomach No evidence of bowel obstr uction. There is moderate stool burden where it scattered mild left-sided colonic diverticulosis. Nor mal appendix. PERITONEUM/RETROPERITONEUM: No evidence of pneumoperitoneum or free fluid. VASCULATURE: No evidence of aortic aneurysm. MUSCULOSKELETAL: Mild degenerative disc disease and mild to moderate facet arthropathy L5-S1. LYMPH NODES: No gross evidence for lymphadenopathy. SOFT TISSUE/ABDOMINAL WALL: Unremarkable IMPRESSION: 1. The 4.9 cm posterior right renal abscess is stable from 01/27/2025. 2. However, previous inflammatory fluid in the posterior right pararenal space have begun to organize and multiple early abscesses, are forming, largest measuring 6.8 x 3.4 cm posterolaterally at the lo wer pole. Inferiorly, a collection measures 5.1 cm. Posteromedially at the mid and lower pole, 2 area s measuring 4.3 cm each. [facility], , 02/20/2025 11:41 AM
== END | disposition home or self-care (01) ==
LOC: RADCTMAIN 08:04
PROVIDERS: ATTEND Urology
DX: N15.1 Renal and perinephric abscess (principal); N28.89 Other specified disorders of kidney and ureter
CPT/HCPCS: 82565; 84520; 74160; 36415; Q9967

== ENCOUNTER → 2025-05-23 | Outpatient (CLI) | payer OTHER ==
[2025-05-23 12:33] LABS: African American GFR (CKD) >90 (>60 ml/min/1.73 sqM); Blood Urea Nitrogen 17 mg/dL (9-20); Non-African American GFR(CKD) >90 (>60 ml/min/1.73 sqM)
--- NOTE | 2025-05-23 13:55 | CT ---
EXAMINATION TYPE: CT abdomen pelvis w con CT DLP: 1877.9 mGycm, Automated exposure control for dose reduction was used. DATE OF EXAM: 05/23/2025 1:46 PM COMPARISON: CT abdomen 02/20/2025, CT abdomen and pelvis 01/27/2025, 12/17/2024 CLINICAL INDICATION:Male, 49 years old with history of N15.1 RENAL ABSCESS; right renal abscess TECHNIQUE: Standard CT of the abdomen and pelvis following the administration of 100 cc of Isovue 3 00 IV contrast material and oral contrast. Coronal and sagittal reformats were performed. FINDINGS: LOWER CHEST: Unremarkable ABDOMEN LIVER: No focal lesion. Possible hepatic steatosis. GALLBLADDER AND BILE DUCTS: Unremarkable. PANCREAS: Unremarkable. SPLEEN: Unremarkable. ADRENAL GLANDS: Unremarkable. KIDNEYS AND URETERS: No evidence of hydronephrosis or renal calculus. The kidneys enhance symmetrical ly. Contrast is demonstrated within both collecting systems and within the proximal ureters on the de layed phase. No significant improvement in posterior right renal abscess with some residual stranding changes identified. No definitive organized fluid collection at this time. PELVIS BLADDER: Unremarkable REPRODUCTIVE: Unremarkable. ABDOMEN & PELVIS STOMACH AND BOWEL: Stomach and duodenum are unremarkable. Enteric contrast reaches the mid to distal small bowel. Distal colonic diverticulosis without evidence for acute diverticulitis. No focal bowel wall thickening or surrounding inflammatory changes. The appendix is within normal limits. No evidenc e of bowel obstruction. PERITONEUM: No evidence of pneumoperitoneum or free fluid. VASCULATURE: No evidence of aortic aneurysm. MUSCULOSKELETAL: No acute osseous abnormalities. Degenerative changes of the bilateral SI joints with anterior bridging. LYMPH NODES: No evidence for lymphadenopathy. SOFT TISSUE/ABDOMINAL WALL: Unremarkable IMPRESSION: 1. Significant improvement in previously seen right renal abscess with some residual stranding ident ified. 2. Colonic diverticulosis without evidence for acute diverticulitis. [facility], , 05/23/2025 1:53 PM
== END | disposition home or self-care (01) ==
LOC: RADCTMAIN 11:33
DX: N15.1 Renal and perinephric abscess (principal); K57.30 Diverticulosis of large intestine without perforation or abscess without bleeding
CPT/HCPCS: 82565; 84520; 74177; 36415; Q9967

== ENCOUNTER 2025-05-28 10:06 | Inpatient (IN) | payer OTHER ==
[2025-05-28 10:22] LABS: Glucose,Whole Blood 267 mg/dL (70-110)
--- NOTE | 2025-05-28 10:44 | ED ---
Nausea/Vomiting/Diarrhea HPI - General Chief complaint: Abdominal Pain Stated complaint: Abd Pain/NV Time Seen by Provider: 05/28/25 10:27 Source: patient, RN notes reviewed Mode of arrival: ambulatory Limitations: no limitations - History of Present Illness Initial comments: This is a 49-year-old male who presents to the emergency department for abdomin al pain, nausea, and vomiting. States that it started 3 days ago. He has been unable to control the vomiting. He has some abdominal soreness related to all of the vomiting, but no localized or severe pain. Denies any diarrhea or constipation. He is diabetic and has been unable to take his medication for a few days because of the vomiting. He went to go see his primary care provider this morning but was advised to come to the emergency department for further evaluation due to concern for dehydration. MD complaint: nausea, vomiting, abdominal pain - Related Data Home Medications Medication Instructions Recorded Confirmed Atorvastatin [Lipitor] 20 mg PO HS 01/27/25 05/28/25 Empagliflozin [Jardiance] 25 mg PO DAILY 01/27/25 05/28/25 Gabapentin 600 mg PO TID 01/27/25 05/28/25 HYDROcodone/APAP 5-325MG [[place] 1 tab PO BID PRN 01/27/25 05/28/25 5-325] Omeprazole 20 mg PO DAILY 01/27/25 05/28/25 Pioglitazone [Actos] 30 mg PO DAILY 01/27/25 05/28/25 lisinopriL [Zestril] 5 mg PO DAILY 01/27/25 05/28/25 metFORMIN HCL [Glucophage] 1,000 mg PO BID 01/27/25 05/28/25 Dulaglutide [Trulicity] 4.5 mg SQ FR 05/28/25 05/28/25 Insulin Glargine (Lantus) [Lantus 20 unit SQ DAILY@0700 05/28/25 05/28/25 Vial] Nicotine 21Mg/24Hr Patch [Habitrol] 1 patch TRANSDERM DAILY PRN 05/28/25 05/28/25 Allergies Allergy/AdvReac Type Severity Reaction Status Date / Time No Known Allergies Allergy Verified 05/28/25 14:54 Review of Systems ROS Statement: Those systems with pertinent positive or pertinent negative responses have been documented in the HPI. ROS Other: All systems not noted in ROS Statement are negative. Past Medical History Past Medical History: Asthma, Diabetes Mellitus History of Any Multi-Drug Resistant Organisms: None Reported Past Surgical History: Orthopedic Surgery Past Anesthesia/Blood Transfusion Reactions: No Reported Reaction Past Psychological History: No Psychological Hx Reported Smoking Status: Current every day smoker Past Alcohol Use History: Rare Past Drug Use History: None Reported General Exam Limitations: no limitations General appearance: alert, in no apparent distress Head exam: Present: atraumatic, normocephalic, normal inspection Respiratory exam: Present: normal lung sounds bilaterally. Absent: respiratory distress, wheezes, rales, rhonchi, stridor Cardiovascular Exam: Present: normal rhythm, tachycardia GI/Abdominal exam: Present: soft. Absent: distended, tenderness Neurological exam: Present: alert, oriented X3, CN II-XII intact Psychiatric exam: Present: normal affect, normal mood Skin exam: Present: warm, dry, intact, normal color. Absent: rash Course Vital Signs 05/28/25 05/28/25 05/28/25 10:15 11:04 12:00 Temperature 98 F Pulse Rate 127 H 103 H 106 H Respiratory 18 24 24 Rate Blood Pressure 132/91 109/91 125/80 O2 Sat by Pulse 98 97 97 Oximetry 05/28/25 05/28/25 05/28/25 12:30 13:00 13:30 Temperature Pulse Rate 104 H 105 H 111 H Respiratory 21 24 22 Rate Blood Pressure 120/73 123/73 138/86 O2 Sat by Pulse 97 96 96 Oximetry 05/28/25 05/28/25 05/28/25 14:00 14:15 14:30 Temperature Pulse Rate 110 H 107 H 105 H Respiratory 20 18 21 Rate Blood Pressure 132/90 149/87 120/66 O2 Sat by Pulse 98 98 97 Oximetry Medical Decision Making - Medical Decision Making This is a 49 year old male who presents to the emergency department for nausea and vomiting. Was pt. sent in by a medical professional or institution? @ -His PCP Did you speak to anyone other than the patient for history? @ -No Did you review nursing and triage notes? @ -Yes, and I agree, it is accurate with regards to the patient's symptoms. Were old charts reviewed? @ -No Differential Diagnosis? @ -Differential Nausea and Vomiting: Gastroenteritis, cholecystitis, appendicitis, pancreatitis, migraine, benign positional vertigo, food borne illness, pyelonephritis, irritable bowel syndrome, influenza, Covid, GERD, incarcerated hernia, intestinal obstruction, this is not meant to be an all-inclusive list. EKG interpreted by me (3pts min.)? @ -EKG interpreted by me demonstrating the following: Sinus tachycardia. Ventricular rate 111 bpm, MN interval 142 ms, QRS duration 92 ms, QTc 379 ms. X-rays interpreted by me (1pt min.)? @ -Not obtained CT interpreted by me (1pt min.)? @ -Not obtained U/S interpreted by me (1pt. min.)? @ -Not obtained What testing was considered but not performed? (CT, X-rays, U/S, labs)? Why? @ -None What meds were considered but not given? Why? @ -None Did you discuss the management of the patient with other professionals? @ -Yes, Dr. Ramirez, who accepts the patient for admission. Did you reconcile home meds? @ -No Was smoking cessation discussed for >3mins.? @ -No Was critical care preformed (if so, how long)? @ -No Were there social determinants of health that impacted care today? How? (Homelessness, low income, unemployed, alcoholism, drug addiction, transportation, low edu. Level, literacy, decrease access to med. care, correction, rehab)? @ -No Was there de-escalation of care discussed even if they declined? (Discuss DNR or withdrawal of care, Hospice)? @ -No What co-morbidities impacted this encounter? (DM, HTN, Smoking, COPD, CAD, Cancer, CVA, Hep., AIDS, mental health diagnosis, sleep apnea, morbid obesity)? @ -DM Was patient admitted / discharged? @ -Admitted. Lab work demonstrates leukocytosis with a white blood cell count of 17.52, which is likely reactive. Blood sugar is only 272, however he is acidotic with an anion gap of 28 and bicarb of 13. He is also acetone positive. Hemoglobin and hematocrit are elevated, likely related to dehydration. Urinalysis negative for signs of infection. He does meet criteria for DKA and was started on the DKA protocol for further management. He had already been given 2 L of IV fluids on arrival and his symptoms were otherwise well- controlled. Patient admitted to medicine for DKA and dehydration. Case discussed with ED attending Dr. King. Undiagnosed new problem with uncertain prognosis? @ -None Drug Therapy requiring intensive monitoring for toxicity (Heparin, Nitro, Insulin, Cardizem)? @ -None Were any procedures done? @ -None Diagnosis/symptom? @ -DKA, dehydration Acute, or Chronic, or Acute on Chronic? @ -Acute Uncomplicated (without systemic symptoms) or Complicated (systemic symptoms)? @ -Complicated Side effects of treatment? @ -None Exacerbation, Progression, or Severe Exacerbation] @ -Not applicable Poses a threat to life or bodily function? @ -Yes, can lead to life-threatening electrolyte abnormality - Lab Data Result diagrams: 05/28/25 11:00 05/28/25 15:37 Lab Results 05/28/25 05/28/25 05/28/25 Range/Units 10:21 11:00 11:00 WBC 17.52 H (4.50-10.00) 10*3/uL RBC 7.10 H (4.40-5.60) 10*6/uL Hgb 20.4 H* (13.0-17.0) g/dL Hct 59.4 H* (39.6-50.0) % MCV 83.7 (80.0-97.0) fL MCH 28.7 (27.0-32.0) pg MCHC 34.3 (32.0-37.0) g/dL Plt Count 300 (140-440) 10*3/uL MPV 9.0 L (9.5-12.2) fL Immature Gran % (Auto) 0.7 % Neutrophils % 79.2 % Lymphocytes % 10.0 % Monocytes % 9.6 % Eosinophils % 0.1 % Basophils % 0.4 % Immature Gran # 0.12 H (0.00-0.04) 10*3/uL Neutrophils # 13.88 H (1.80-7.70) 10*3/uL Lymphocytes # 1.75 (0.90-5.00) 10*3/uL Monocytes # 1.68 H (0.20-1.00) 10*3/uL Eosinophils # 0.02 L (0.04-0.35) 10*3/uL Basophils # 0.07 (0.00-0.10) 10*3/uL VBG pH (7.31-7.41) VBG pCO2 (37-51) mmHg VBG HCO3 (24-28) mmol/L Sodium (137-145) mmol/L Potassium (3.5-5.1) mmol/L Chloride (98-107) mmol/L Carbon Dioxide (22-30) mmol/L Anion Gap mmol/L BUN (9-20) mg/dL Creatinine (0.66-1.25) mg/dL Est GFR (CKD-EPI)AfAm (>60 ml/min/1.73 sqM) Est GFR (CKD-EPI)NonAf (>60 ml/min/1.73 sqM) Glucose (74-99) mg/dL POC Glucose (mg/dL) 267 H (70-110) mg/dL POC Glu [employer] ID Aiden Ayala Plasma Lactic Acid Royce (0.7-2.0) mmol/L Calcium (8.4-10.2) mg/dL Phosphorus (2.5-4.5) mg/dL Magnesium (1.6-2.3) mg/dL Total Bilirubin (0.2-1.3) mg/dL AST (17-59) U/L ALT (4-49) U/L Alkaline Phosphatase (38-126) U/L Total Protein (6.3-8.2) g/dL Albumin (3.5-5.0) g/dL Amylase (30-110) U/L Lipase (23-300) U/L Urine Color Colorless Urine Appearance Clear (Clear) Urine pH 5.0 (5.0-8.0) Ur Specific [place] 1.024 (1.001-1.035) Urine Protein Negative (Negative) Urine Glucose (UA) 4+ H (Negative) Urine Ketones 4+ H (Negative) Urine Blood Trace H (Negative) Urine Nitrite Negative (Negative) Urine Bilirubin Negative (Negative) Urine Urobilinogen <2.0 (<2.0) mg/dL Ur Leukocyte Esterase Negative (Negative) Urine RBC <1 (0-5) /hpf Urine WBC 1 (0-5) /hpf Acetone, Qual (Negative) 05/28/25 05/28/25 05/28/25 Range/Units 11:00 11:00 12:14 WBC (4.50-10.00) 10*3/uL RBC (4.40-5.60) 10*6/uL Hgb (13.0-17.0) g/dL Hct (39.6-50.0) % MCV (80.0-97.0) fL MCH (27.0-32.0) pg MCHC (32.0-37.0) g/dL Plt Count (140-440) 10*3/uL MPV (9.5-12.2) fL Immature Gran % (Auto) % Neutrophils % % Lymphocytes % % Monocytes % % Eosinophils % % Basophils % % Immature Gran # (0.00-0.04) 10*3/uL Neutrophils # (1.80-7.70) 10*3/uL Lymphocytes # (0.90-5.00) 10*3/uL Monocytes # (0.20-1.00) 10*3/uL Eosinophils # (0.04-0.35) 10*3/uL Basophils # (0.00-0.10) 10*3/uL VBG pH 7.26 L (7.31-7.41) VBG pCO2 34 L (37-51) mmHg VBG HCO3 15 L (24-28) mmol/L Sodium 133 L (137-145) mmol/L Potassium 5.4 H (3.5-5.1) mmol/L Chloride 92 L (98-107) mmol/L Carbon Dioxide 13 L (22-30) mmol/L Anion Gap 28 mmol/L BUN 37 H (9-20) mg/dL Creatinine 1.35 H (0.66-1.25) mg/dL Est GFR (CKD-EPI)AfAm 70 (>60 ml/min/1.73 sqM) Est GFR (CKD-EPI)NonAf 61 (>60 ml/min/1.73 sqM) Glucose 272 H (74-99) mg/dL POC Glucose (mg/dL) (70-110) mg/dL POC Glu Motion Picture [employer]inter ID Plasma Lactic Acid Royce 1.7 (0.7-2.0) mmol/L Calcium 10.7 H (8.4-10.2) mg/dL Phosphorus 5.2 H (2.5-4.5) mg/dL Magnesium 2.5 H (1.6-2.3) mg/dL Total Bilirubin 1.2 (0.2-1.3) mg/dL AST 19 (17-59) U/L ALT 17 (4-49) U/L Alkaline Phosphatase 96 (38-126) U/L Total Protein 8.5 H (6.3-8.2) g/dL Albumin 5.5 H (3.5-5.0) g/dL Amylase 169 H (30-110) U/L Lipase 262 (23-300) U/L Urine Color Urine Appearance (Clear) Urine pH (5.0-8.0) Ur Specific [place] (1.001-1.035) Urine Protein (Negative) Urine Glucose (UA) (Negative) Urine Ketones (Negative) Urine Blood (Negative) Urine Nitrite (Negative) Urine Bilirubin (Negative) Urine Urobilinogen (<2.0) mg/dL Ur Leukocyte Esterase (Negative) Urine RBC (0-5) /hpf Urine WBC (0-5) /hpf Acetone, Qual Positive (Negative) Disposition Clinical Impression: DKA (diabetic ketoacidosis), Dehydration Disposition: ADMITTED IP TO THIS HOSP
[2025-05-28] MEDS: SODIUM CHLORIDE 0.9% 1,000 ML IV SCH ×2 (10:56→12:19)
[2025-05-28] MEDS: ONDANSETRON 4 MG/2 ML VIAL IVP STA (10:56)
[2025-05-28] MEDS: PANTOPRAZOLE 40 MG/10 ML VIAL IVP STA (10:57)
[2025-05-28 11:17] LABS: Basophils # (A) 0.07 10*3/uL (0.00-0.10); Basophils % (A) 0.4 %; Bilirubin,Urine Negative (Negative); Blood,Urine Trace (Negative); Color,Urine Colorless; Eosinophils # (A) 0.02 10*3/uL (0.04-0.35); Eosinophils % (A) 0.1 %; Glucose,Urine (UA) 4+ (Negative); Leukocyte Esterase,Urine Negative (Negative); Lymphocytes # (A) 1.75 10*3/uL (0.90-5.00); Lymphocytes % (A) 10.0 %; MCH 28.7 pg (27.0-32.0); MCHC 34.3 g/dL (32.0-37.0); MCV 83.7 fL (80.0-97.0); Monocytes # (A) 1.68 10*3/uL (0.20-1.00); Monocytes % (A) 9.6 %; Neutrophils # (A) 13.88 10*3/uL (1.80-7.70); Neutrophils % (A) 79.2 %; Nitrite,Urine Negative (Negative); PH, Urine 5.0 (5.0-8.0); Platelet Count 300 10*3/uL (140-440); Protein,Urine Negative (Negative); RBC 7.10 10*6/uL (4.40-5.60); RBC,Urine <1 /hpf (0-5); RDW 18.4 % (11.5-14.5); Specific Gravity,Urine 1.024 (1.001-1.035); Urobilinogen,Urine <2.0 mg/dL (<2.0); WBC 17.52 10*3/uL (4.50-10.00); WBC,Urine 1 /hpf (0-5)
[2025-05-28 11:27] LABS: HCT 59.4 % (39.6-50.0); HGB 20.4 g/dL (13.0-17.0)
[2025-05-28 11:33] LABS: ALT 17 U/L (4-49); AST 19 U/L (17-59); African American GFR (CKD) 70 (>60 ml/min/1.73 sqM); Albumin 5.5 g/dL (3.5-5.0); Alkaline Phosphatase 96 U/L (38-126); Amylase 169 U/L (30-110); Anion Gap 28 mmol/L; Blood Urea Nitrogen 37 mg/dL (9-20); Calcium 10.7 mg/dL (8.4-10.2); Carbon Dioxide 13 mmol/L (22-30); Chloride 92 mmol/L (98-107); Glucose 272 mg/dL (74-99); Lipase 262 U/L (23-300); Magnesium 2.5 mg/dL (1.6-2.3); Non-African American GFR(CKD) 61 (>60 ml/min/1.73 sqM); Potassium 5.4 mmol/L (3.5-5.1); Sodium 133 mmol/L (137-145); Total Protein 8.5 g/dL (6.3-8.2)
[2025-05-28 11:51] LABS: Ketones,Urine 4+ (Negative)
[2025-05-28 12:23] LABS: VBG HCO3 15.0 mmol/L (24-28); VBG PCO2 34.0 mmHg (37-51); VBG PH 7.26 (7.31-7.41)
[2025-05-28] MEDS ORDERED: MORPHINE SULFATE 4 MG/ML SYRINGE IV PRN (12:25)
[2025-05-28] MEDS ORDERED: NALOXONE 0.4 MG/ML 1 ML VIAL IV PRN (12:25)
[2025-05-28] MEDS ORDERED: ACETAMINOPHEN TAB 325 MG TAB PO PRN (12:25)
[2025-05-28] MEDS: D5-0.45% NACL WITH KCL 20MEQ/L 1,000 ML IV SCH (13:08)
[2025-05-28] MEDS: INSULIN REGULAR 100 UNIT in SODIUM CHLORIDE 0.9% 100 ML IV SCH (13:11)
[2025-05-28 13:22] LABS: Glucose,Whole Blood 179 mg/dL (70-110)
[2025-05-28] MEDS: METOCLOPRAMIDE 5 MG/ML 2 ML VIAL IVP STA (13:52)
[2025-05-28 14:12] LABS: Glucose,Whole Blood 223 mg/dL (70-110)
[2025-05-28 15:09] LABS: Glucose,Whole Blood 267 mg/dL (70-110)
[2025-05-28 16:03] LABS: Glucose,Whole Blood 239 mg/dL (70-110)
[2025-05-28 16:05] LABS: African American GFR (CKD) >90 (>60 ml/min/1.73 sqM); Anion Gap 22 mmol/L; Blood Urea Nitrogen 29 mg/dL (9-20); Carbon Dioxide 11 mmol/L (22-30); Chloride 101 mmol/L (98-107); Glucose 245 mg/dL (74-99); Non-African American GFR(CKD) 82 (>60 ml/min/1.73 sqM); Potassium 4.4 mmol/L (3.5-5.1); Sodium 134 mmol/L (137-145)
[2025-05-28 16:58] LABS: Glucose,Whole Blood 156 mg/dL (70-110)
[2025-05-28 17:57] LABS: Glucose,Whole Blood 97 mg/dL (70-110)
[2025-05-28 18:54] LABS: Glucose,Whole Blood 70 mg/dL (70-110)
[2025-05-28] MEDS ORDERED: NICOTINE 21MG/24HR PATCH TRANSDERM PRN (19:45)
--- NOTE | 2025-05-28 19:45 | P.HPIM ---
History of Present Illness This is a pleasant 49 years old male who presents because of vomiting since Monday. 2 days ago he was vomiting constantly yesterday he could not hold some of the fluid down still he was vomiting, no obvious report of blood or coffee-ground in his vomiting. Because of that patient got concerned and came to the emergency room Patient also reports some abdominal pain in the periumbilical area nonradiating otherwise about 5-10 sometimes feels like sharp with no obvious precipitating or relieving factors. He did not have bowel movement since Monday. Patient was not taking his insulin he stated he could not tolerate that. Patient states he supposed to take insulin 20 units twice a day and metformin 1000 mg Actos and Jardiance. He states he was not on antibiotic Patient with no fever but tachycardia improving slightly 123 down to 117. WBC 17. Hemoglobin 20. Sodium 133, potassium 5.4 creatinine 1.35. Anion gap is elevated. Liver enzymes unremarkable. Lipase negative. Urinalysis showing glucosuria and ketonuria acetone is positive EKG shows sinus tachycardia at 111. pH 7.4. Acetone is positive. Patient was started insulin drip. Review of Systems Review of systems CONSTITUTIONAL: No fever, no malaise, no fatigue. HEENT: No recent visual problems or hearing problems. Denied any sore throat. CARDIOVASCULAR: No orthopnea, PND, no palpitations, no syncope. PULMONARY: No shortness of breath, no cough, no hemoptysis. GASTROINTESTINAL: As above NEUROLOGICAL: No headaches, no weakness, no numbness. HEMATOLOGICAL: Denies any bleeding or petechiae. GENITOURINARY: Denies any burning micturition, frequency, or urgency. MUSCULOSKELETAL/RHEUMATOLOGICAL: Denies any joint pain, swelling, or any muscle pain. ENDOCRINE: Denies any polyuria or polydipsia. Past Medical History Past Medical History: Asthma, Diabetes Mellitus Additional Past Medical History / Comment(s): DKA 01/28 History of Any Multi-Drug Resistant Organisms: None Reported Past Surgical History: Orthopedic Surgery Past Anesthesia/Blood Transfusion Reactions: No Reported Reaction Past Psychological History: No Psychological Hx Reported Smoking Status: Current every day smoker Past Alcohol Use History: Rare Past Drug Use History: None Reported Medications and Allergies Home Medications Medication Instructions Recorded Confirmed Type Atorvastatin [Lipitor] 20 mg PO HS 01/27/25 05/28/25 History Empagliflozin [Jardiance] 25 mg PO DAILY 01/27/25 05/28/25 History Gabapentin 600 mg PO TID 01/27/25 05/28/25 History HYDROcodone/APAP 5-325MG [[place] 1 tab PO BID PRN 01/27/25 05/28/25 History 5-325] Omeprazole 20 mg PO DAILY 01/27/25 05/28/25 History Pioglitazone [Actos] 30 mg PO DAILY 01/27/25 05/28/25 History lisinopriL [Zestril] 5 mg PO DAILY 01/27/25 05/28/25 History metFORMIN HCL [Glucophage] 1,000 mg PO BID 01/27/25 05/28/25 History Dulaglutide [Trulicity] 4.5 mg SQ FR 05/28/25 05/28/25 History Insulin Glargine (Lantus) [Lantus 20 unit SQ DAILY@0700 05/28/25 05/28/25 History Vial] Nicotine 21Mg/24Hr Patch [Habitrol] 1 patch TRANSDERM DAILY PRN 05/28/25 05/28/25 History Allergies Allergy/AdvReac Type Severity Reaction Status Date / Time No Known Allergies Allergy Verified 05/28/25 14:54 Physical Exam Vitals: Vital Signs Temp Pulse Pulse Resp BP BP Pulse Ox 05/28/25 16:00 117 H 18 138/93 97 05/28/25 15:44 117 H 05/28/25 15:37 98.1 F 117 H 18 138/93 97 05/28/25 14:30 105 H 21 120/66 97 05/28/25 14:15 107 H 18 149/87 98 05/28/25 14:00 110 H 20 132/90 98 05/28/25 13:30 111 H 22 138/86 96 05/28/25 13:00 105 H 24 123/73 96 05/28/25 12:30 104 H 21 120/73 97 05/28/25 12:00 106 H 24 125/80 97 05/28/25 11:04 103 H 24 109/91 97 05/28/25 10:15 98 F 127 H 18 132/91 98 Intake and Output 05/28/25 05/28/25 05/28/25 06:59 14:59 22:59 Intake Total 0.382 52.428 Balance 0.382 52.428 Intake: Intake, IV Titration 0.382 52.428 Amount Insulin Regular 100 unit 0.382 52.428 In Sodium Chloride 0.9% 100 ml @ 0.1 UNITS/KG/HR 11.453 mls/hr IV .Q8H50M [facility] Rx#:[id number] Other: Voiding Method Toilet Weight 113.398 kg 113.398 kg GENERAL: The patient is alert and oriented x3, not in any acute distress. Well developed, well nourished. HEENT: Pupils are round and equally reacting to light. EOMI. No scleral icterus. No conjunctival pallor. Normocephalic, atraumatic. No pharyngeal erythema. No thyromegaly. CARDIOVASCULAR: S1 and S2 present. No murmurs, rubs, or gallops. PULMONARY: Chest is clear to auscultation, no wheezing , no crackles. -ABDOMEN: Soft, mild paramedical tenderness, no guarding or rebound tenderness nondistended, normoactive bowel sounds. No palpable organomegaly. MUSCULOSKELETAL: No joint swelling or deformity. EXTREMITIES: No cyanosis, clubbing, or pedal edema. NEUROLOGICAL: Gross neurological examination did not reveal any focal deficits. SKIN: No rashes. no petechiae. Results CBC & Chem 7: 05/28/25 11:00 05/28/25 15:37 Labs: Abnormal Lab Results - Last 24 Hours (Table) 05/28/25 05/28/25 05/28/25 Range/Units 10:21 11:00 11:00 WBC 17.52 H (4.50-10.00) 10*3/uL RBC 7.10 H (4.40-5.60) 10*6/uL Hgb 20.4 H* (13.0-17.0) g/dL Hct 59.4 H* (39.6-50.0) % MPV 9.0 L (9.5-12.2) fL Immature Gran # 0.12 H (0.00-0.04) 10*3/uL Neutrophils # 13.88 H (1.80-7.70) 10*3/uL Monocytes # 1.68 H (0.20-1.00) 10*3/uL Eosinophils # 0.02 L (0.04-0.35) 10*3/uL VBG pH (7.31-7.41) VBG pCO2 (37-51) mmHg VBG HCO3 (24-28) mmol/L Sodium (137-145) mmol/L Potassium (3.5-5.1) mmol/L Chloride (98-107) mmol/L Carbon Dioxide (22-30) mmol/L BUN (9-20) mg/dL Creatinine (0.66-1.25) mg/dL Glucose (74-99) mg/dL POC Glucose (mg/dL) 267 H (70-110) mg/dL Calcium (8.4-10.2) mg/dL Phosphorus (2.5-4.5) mg/dL Magnesium (1.6-2.3) mg/dL Total Protein (6.3-8.2) g/dL Albumin (3.5-5.0) g/dL Amylase (30-110) U/L Urine Glucose (UA) 4+ H (Negative) Urine Ketones 4+ H (Negative) Urine Blood Trace H (Negative) 05/28/25 05/28/25 05/28/25 Range/Units 11:00 12:14 13:11 WBC (4.50-10.00) 10*3/uL RBC (4.40-5.60) 10*6/uL Hgb (13.0-17.0) g/dL Hct (39.6-50.0) % MPV (9.5-12.2) fL Immature Gran # (0.00-0.04) 10*3/uL Neutrophils # (1.80-7.70) 10*3/uL Monocytes # (0.20-1.00) 10*3/uL Eosinophils # (0.04-0.35) 10*3/uL VBG pH 7.26 L (7.31-7.41) VBG pCO2 34 L (37-51) mmHg VBG HCO3 15 L (24-28) mmol/L Sodium 133 L (137-145) mmol/L Potassium 5.4 H (3.5-5.1) mmol/L Chloride 92 L (98-107) mmol/L Carbon Dioxide 13 L (22-30) mmol/L BUN 37 H (9-20) mg/dL Creatinine 1.35 H (0.66-1.25) mg/dL Glucose 272 H (74-99) mg/dL POC Glucose (mg/dL) 179 H (70-110) mg/dL Calcium 10.7 H (8.4-10.2) mg/dL Phosphorus 5.2 H (2.5-4.5) mg/dL Magnesium 2.5 H (1.6-2.3) mg/dL Total Protein 8.5 H (6.3-8.2) g/dL Albumin 5.5 H (3.5-5.0) g/dL Amylase 169 H (30-110) U/L Urine Glucose (UA) (Negative) Urine Ketones (Negative) Urine Blood (Negative) 05/28/25 05/28/25 05/28/25 Range/Units 14:11 15:03 15:37 WBC (4.50-10.00) 10*3/uL RBC (4.40-5.60) 10*6/uL Hgb (13.0-17.0) g/dL Hct (39.6-50.0) % MPV (9.5-12.2) fL Immature Gran # (0.00-0.04) 10*3/uL Neutrophils # (1.80-7.70) 10*3/uL Monocytes # (0.20-1.00) 10*3/uL Eosinophils # (0.04-0.35) 10*3/uL VBG pH (7.31-7.41) VBG pCO2 (37-51) mmHg VBG HCO3 (24-28) mmol/L Sodium 134 L (137-145) mmol/L Potassium (3.5-5.1) mmol/L Chloride (98-107) mmol/L Carbon Dioxide 11 L (22-30) mmol/L BUN 29 H (9-20) mg/dL Creatinine (0.66-1.25) mg/dL Glucose 245 H (74-99) mg/dL POC Glucose (mg/dL) 223 H 267 H (70-110) mg/dL Calcium (8.4-10.2) mg/dL Phosphorus (2.5-4.5) mg/dL Magnesium (1.6-2.3) mg/dL Total Protein (6.3-8.2) g/dL Albumin (3.5-5.0) g/dL Amylase (30-110) U/L Urine Glucose (UA) (Negative) Urine Ketones (Negative) Urine Blood (Negative) 05/28/25 05/28/25 Range/Units 16:01 16:57 WBC (4.50-10.00) 10*3/uL RBC (4.40-5.60) 10*6/uL Hgb (13.0-17.0) g/dL Hct (39.6-50.0) % MPV (9.5-12.2) fL Immature Gran # (0.00-0.04) 10*3/uL Neutrophils # (1.80-7.70) 10*3/uL Monocytes # (0.20-1.00) 10*3/uL Eosinophils # (0.04-0.35) 10*3/uL VBG pH (7.31-7.41) VBG pCO2 (37-51) mmHg VBG HCO3 (24-28) mmol/L Sodium (137-145) mmol/L Potassium (3.5-5.1) mmol/L Chloride (98-107) mmol/L Carbon Dioxide (22-30) mmol/L BUN (9-20) mg/dL Creatinine (0.66-1.25) mg/dL Glucose (74-99) mg/dL POC Glucose (mg/dL) 239 H 156 H (70-110) mg/dL Calcium (8.4-10.2) mg/dL Phosphorus (2.5-4.5) mg/dL Magnesium (1.6-2.3) mg/dL Total Protein (6.3-8.2) g/dL Albumin (3.5-5.0) g/dL Amylase (30-110) U/L Urine Glucose (UA) (Negative) Urine Ketones (Negative) Urine Blood (Negative) Assessment and Plan Assessment: Diabetic ketoacidosis Severe dehydration from nausea vomiting Abdominal pain secondary to DKA. Nonadherence to Treatment Acute kidney injury Plan: Continue with hydration Continue with insulin drip per protocol Continue to trend electrolytes and creatinine closely Admit to telemetry unit If no improvements his abdominal pain most likely secondary to his diabetic ketoacidosis, continue close monitoring if no improvement we will consider further workup and surgery to consult Labs and medication were reviewed.. Continue same treatment. Continue with symptomatic treatment. Resume home medication. Monitor labs and vitals. DVT and GI prophylaxis. Further recommendations as per clinical course of the patient DVT prophylaxis: Subcutaneous heparin GI Prophylaxis: Pepcid Prognosis is guarded
[2025-05-28 20:04] LABS: Glucose,Whole Blood 106 mg/dL (70-110)
[2025-05-28] MEDS: HYDROcodone/APAP 5-325MG 1 EACH TAB PO PRN (20:04)
[2025-05-28] MEDS: ONDANSETRON 4 MG/2 ML VIAL IVP PRN (20:04)
[2025-05-28 20:36] LABS: African American GFR (CKD) >90 (>60 ml/min/1.73 sqM); Anion Gap 16 mmol/L; Blood Urea Nitrogen 25 mg/dL (9-20); Carbon Dioxide 16 mmol/L (22-30); Chloride 101 mmol/L (98-107); Glucose 116 mg/dL (74-99); Non-African American GFR(CKD) >90 (>60 ml/min/1.73 sqM); Potassium 4.4 mmol/L (3.5-5.1); Sodium 133 mmol/L (137-145)
[2025-05-28 21:03] LABS: Glucose,Whole Blood 122 mg/dL (70-110)
[2025-05-28 22:01] LABS: Glucose,Whole Blood 146 mg/dL (70-110)
[2025-05-28] MEDS: HEPARIN SODIUM,PORCINE 5,000 UNIT/ML 1 ML VIAL SQ SCH (23:01)
[2025-05-28 23:08] LABS: Glucose,Whole Blood 182 mg/dL (70-110)
[2025-05-29 00:03] LABS: Glucose,Whole Blood 167 mg/dL (70-110)
[2025-05-29 01:00] LABS: Glucose,Whole Blood 169 mg/dL (70-110)
[2025-05-29 01:57] LABS: Glucose,Whole Blood 189 mg/dL (70-110)
[2025-05-29 02:59] LABS: Glucose,Whole Blood 169 mg/dL (70-110)
[2025-05-29 04:09] LABS: Glucose,Whole Blood 182 mg/dL (70-110)
[2025-05-29 05:03] LABS: Glucose,Whole Blood 184 mg/dL (70-110)
[2025-05-29 05:36] LABS: African American GFR (CKD) >90 (>60 ml/min/1.73 sqM); Anion Gap 14 mmol/L; Blood Urea Nitrogen 17 mg/dL (9-20); Calcium 9.4 mg/dL (8.4-10.2); Carbon Dioxide 18 mmol/L (22-30); Chloride 100 mmol/L (98-107); Glucose 182 mg/dL (74-99); Non-African American GFR(CKD) >90 (>60 ml/min/1.73 sqM); Potassium 4.1 mmol/L (3.5-5.1); Sodium 132 mmol/L (137-145)
[2025-05-29 06:06] LABS: Glucose,Whole Blood 182 mg/dL (70-110)
[2025-05-29 07:02] LABS: Glucose,Whole Blood 168 mg/dL (70-110)
[2025-05-29 08:08] LABS: Glucose,Whole Blood 173 mg/dL (70-110)
[2025-05-29] MEDS: PANTOPRAZOLE 40 MG/10 ML VIAL IV SCH (08:48)
[2025-05-29 08:52] LABS: Glucose,Whole Blood 187 mg/dL (70-110)
[2025-05-29 09:26] VITALS: RESP 18
[2025-05-29 09:39] LABS: African American GFR (CKD) >90 (>60 ml/min/1.73 sqM); Anion Gap 18 mmol/L; Blood Urea Nitrogen 16 mg/dL (9-20); Calcium 9.7 mg/dL (8.4-10.2); Carbon Dioxide 16 mmol/L (22-30); Chloride 100 mmol/L (98-107); Glucose 180 mg/dL (74-99); Non-African American GFR(CKD) >90 (>60 ml/min/1.73 sqM); Potassium 4.3 mmol/L (3.5-5.1); Sodium 134 mmol/L (137-145)
[2025-05-29 10:01] LABS: Glucose,Whole Blood 188 mg/dL (70-110)
[2025-05-29 11:03] LABS: Glucose,Whole Blood 171 mg/dL (70-110)
[2025-05-29 12:02] LABS: Glucose,Whole Blood 256 mg/dL (70-110)
[2025-05-29 13:14] VITALS: BMI 28.0
[2025-05-29 13:27] LABS: Glucose,Whole Blood 299 mg/dL (70-110)
[2025-05-29 14:20] LABS: Glucose,Whole Blood 252 mg/dL (70-110)
[2025-05-29 15:05] LABS: Glucose,Whole Blood 215 mg/dL (70-110)
--- NOTE | 2025-05-29 15:16 | XR ---
EXAMINATION TYPE: XR chest 1V portable DATE OF EXAM: 05/29/2025 3:02 PM COMPARISON: None CLINICAL INDICATION: Male, 49 years old with history of shortness of breath, , FINDINGS: Heart normal size. Aorta and pulmonary vasculature within normal limits. No consolidation or pleural effusion. IMPRESSION: No acute cardiopulmonary process. [facility] Fadumo Lino, Workstation: [facility], 05/29/2025 3:14 PM
[2025-05-29 15:18] LABS: Basophils # (A) 0.05 10*3/uL (0.00-0.10); Basophils % (A) 0.4 %; Eosinophils # (A) 0.08 10*3/uL (0.04-0.35); Eosinophils % (A) 0.7 %; HCT 49.7 % (39.6-50.0); Lymphocytes # (A) 1.87 10*3/uL (0.90-5.00); Lymphocytes % (A) 16.7 %; MCH 28.4 pg (27.0-32.0); MCHC 34.6 g/dL (32.0-37.0); MCV 82.0 fL (80.0-97.0); Monocytes # (A) 1.36 10*3/uL (0.20-1.00); Monocytes % (A) 12.1 %; Neutrophils # (A) 7.80 10*3/uL (1.80-7.70); Neutrophils % (A) 69.5 %; Platelet Count 248 10*3/uL (140-440); RBC 6.06 10*6/uL (4.40-5.60); RDW 16.9 % (11.5-14.5); WBC 11.23 10*3/uL (4.50-10.00)
[2025-05-29 15:29] LABS: HGB 17.2 g/dL (13.0-17.0)
[2025-05-29 15:57] LABS: Glucose,Whole Blood 203 mg/dL (70-110)
[2025-05-29 17:07] LABS: Glucose,Whole Blood 156 mg/dL (70-110)
[2025-05-29] MEDS: FAMOTIDINE 20 MG TAB PO STA (17:35)
[2025-05-29] MEDS: CALCIUM CARBONATE 500 MG CHEWABLE PO PRN (17:35)
[2025-05-29 18:05] LABS: African American GFR (CKD) >90 (>60 ml/min/1.73 sqM); Anion Gap 14 mmol/L; Blood Urea Nitrogen 13 mg/dL (9-20); Calcium 9.8 mg/dL (8.4-10.2); Carbon Dioxide 20 mmol/L (22-30); Chloride 100 mmol/L (98-107); Glucose 164 mg/dL (74-99); Non-African American GFR(CKD) >90 (>60 ml/min/1.73 sqM); Potassium 4.3 mmol/L (3.5-5.1); Sodium 134 mmol/L (137-145)
[2025-05-29 18:06] LABS: Glucose,Whole Blood 205 mg/dL (70-110)
[2025-05-29 19:23] LABS: Glucose,Whole Blood 195 mg/dL (70-110)
[2025-05-29 19:34] LABS: RSV Not Detected (Not Detectd)
[2025-05-29 20:08] LABS: Glucose,Whole Blood 171 mg/dL (70-110)
[2025-05-29 21:09] LABS: Glucose,Whole Blood 157 mg/dL (70-110)
[2025-05-29 21:38] LABS: African American GFR (CKD) >90 (>60 ml/min/1.73 sqM); Anion Gap 9 mmol/L; Blood Urea Nitrogen 13 mg/dL (9-20); Calcium 9.1 mg/dL (8.4-10.2); Carbon Dioxide 22 mmol/L (22-30); Chloride 104 mmol/L (98-107); Glucose 161 mg/dL (74-99); Non-African American GFR(CKD) >90 (>60 ml/min/1.73 sqM); Potassium 4.0 mmol/L (3.5-5.1); Sodium 135 mmol/L (137-145)
--- NOTE | 2025-05-29 22:10 | P.PN ---
Subjective Progress Note Date: 05/29/25 This is a pleasant 49 years old male who presents because of vomiting since Monday. 2 days ago he was vomiting constantly yesterday he could not hold some of the fluid down still he was vomiting, no obvious report of blood or coffee-ground in his vomiting. Because of that patient got concerned and came to the emergency room Patient also reports some abdominal pain in the periumbilical area nonradiating otherwise about 5-10 sometimes feels like sharp with no obvious precipitating or relieving factors. He did not have bowel movement since Monday. Patient was not taking his insulin he stated he could not tolerate that. Patient states he supposed to take insulin 20 units twice a day and metformin 10 00 mg Actos and Jardiance. He states he was not on antibiotic Patient with no fever but tachycardia improving slightly 123 down to 117. WBC 17. Hemoglobin 20. Sodium 133, potassium 5.4 creatinine 1.35. Anion gap is elevated. Liver enzymes unremarkable. Lipase negative. Urinalysis showing g lucosuria and ketonuria acetone is positive EKG shows sinus tachycardia at 111. pH 7.4. Acetone is positive. Patient was started insulin drip. 05/29/2025 Patient is seen in follow-up today continues to be on insulin drip and reports feeling starving and has had no further episodes of nausea or vomiting. Prior to arrival patient could not keep anything down and became instantly sick reporting nausea vomiting and diarrhea. Patient's recent anion gap was elevated at 16 and is maintained on DKA protocol. Patient denies any sick contacts although does appear congested and ill on exam. Will obtain a chest x-ray along with repeat labs and recommending holding Jardiance at this time. Will also obtain Cepheid testing to assess for influenza, RSV, or COVID. Patient is currently afebrile right now although continues to report cough and shortness of breath on occasion. Encouraged increased activity as tolerated and will follow- up on repeat labs Review of systems: Constitutional: reports of fatigue, reports of previous fever, or chills Cardiovascular: No reports of chest pain or palpitations Respiratory: No reports of shortness of breath, reports cough GI: No further reports of nausea, vomiting, or diarrhea, patient reports to feeling hungry and would like to eat : No reports of dysuria or retention Neurovascular: reports of generalized weakness Physical exam: GENERAL: The patient is alert and oriented x3, ill-appearing. Well developed, well nourished. HEENT: Pupils are round and equally reacting to light. EOMI. No scleral icterus. No conjunctival pallor. Normocephalic, atraumatic. No pharyngeal erythema. No thyromegaly. CARDIOVASCULAR: S1 and S2 muffled PULMONARY: Diminished breath sounds bilaterally otherwise chest is clear to auscultation, no wheezing , no crackles. Occasional cough on exam ABDOMEN: Soft, mild periumbilical tenderness that has improved, no guarding or rebound tenderness nondistended, normoactive bowel sounds. No palpable organomegaly. MUSCULOSKELETAL: No joint swelling or deformity. EXTREMITIES: No cyanosis, clubbing, or pedal edema. NEUROLOGICAL: Gross neurological examination did not reveal any focal deficits. SKIN: No rashes. no petechiae. Assessment: Diabetic ketoacidosis Severe dehydration from nausea vomiting, likely secondary to influenza A Abdominal pain secondary to DKA. Nonadherence to Treatment Acute kidney injury secondary to GI volume loss with dehydration GI prophylaxis DVT prophylaxis Full code Plan: Continue with hydration and will continue insulin drip as gap is still open blo od sugars have been on the lower side patient is reporting feeling hungry we will add full liquids and monitor and continue insulin drip for now. Follow DKA protocol and follow-up on electrolytes and BMP every 4 hours Patient having cough and congestion and sudden onset of sickness with no sick contacts noted that he recalls, concerns for viral and performed Cepheid which is positive for influenza A, COVID and RSV are negative. Will start Tamiflu Encouraged increase activity as tolerated in the room follow-up on repeat labs recommend wearing a mask Due to multiple complex medical issues, overall prognosis is guarded The impression and plan of care has been dictated by Zahra Hastings, Nurse Practitioner as directed. Dr. Junaid MD I have performed a history and examination and MDM of this patient, discussed the same with the dictator, and agree with the dictator's assessment and plan as written ,documented as a scribe. Based on total visit time, I have performed more than 50% of the visit. Objective - Vital Signs Vital signs: Vital Signs Temp 98.3 F 05/29/25 08:20 Pulse 109 H 05/29/25 08:20 Resp 18 05/29/25 08:20 BP 126/74 05/29/25 08:20 Pulse Ox 96 07/24/25 08:20 FiO2 Intake & Output 05/28/25 05/29/25 05/29/25 18:59 06:59 18:59 Intake Total 45.957 10.119 28.975 Balance 45.957 10.119 28.975 Weight 113.398 kg 98.9 kg 98.9 kg Intake: Intake, IV Titration 45.957 10.119 28.975 Amount Insulin Regular 100 unit 45.957 10.119 28.975 In Sodium Chloride 0.9% 100 ml @ 0.1 UNITS/KG/HR 11.453 mls/hr IV .Q8H50M [facility] Rx#:[id number] Other: Voiding Method Toilet Toilet Toilet # Voids 2 - Labs CBC & Chem 7: 05/29/25 14:45 05/29/25 20:58 Labs: Abnormal Lab Results - Last 24 Hours (Table) 05/28/25 05/28/25 05/28/25 Range/Units 15:03 15:37 16:01 Sodium 134 L (137-145) mmol/L Carbon Dioxide 11 L (22-30) mmol/L BUN 29 H (9-20) mg/dL Glucose 245 H (74-99) mg/dL POC Glucose (mg/dL) 267 H 239 H (70-110) mg/dL 05/28/25 05/28/25 05/28/25 Range/Units 16:57 20:00 21:01 Sodium 133 L (137-145) mmol/L Carbon Dioxide 16 L (22-30) mmol/L BUN 25 H (9-20) mg/dL Glucose 116 H (74-99) mg/dL POC Glucose (mg/dL) 156 H 122 H (70-110) mg/dL 05/28/25 05/28/25 05/29/25 Range/Units 22:00 23:07 00:01 Sodium (137-145) mmol/L Carbon Dioxide (22-30) mmol/L BUN (9-20) mg/dL Glucose (74-99) mg/dL POC Glucose (mg/dL) 146 H 182 H 167 H (70-110) mg/dL 05/29/25 05/29/25 05/29/25 Range/Units 00:58 01:56 02:57 Sodium (137-145) mmol/L Carbon Dioxide (22-30) mmol/L BUN (9-20) mg/dL Glucose (74-99) mg/dL POC Glucose (mg/dL) 169 H 189 H 169 H (70-110) mg/dL 05/29/25 05/29/25 05/29/25 Range/Units 04:08 05:02 05:05 Sodium 132 L (137-145) mmol/L Carbon Dioxide 18 L (22-30) mmol/L BUN (9-20) mg/dL Glucose 182 H (74-99) mg/dL POC Glucose (mg/dL) 182 H 184 H (70-110) mg/dL 05/29/25 05/29/25 05/29/25 Range/Units 06:00 07:01 08:06 Sodium (137-145) mmol/L Carbon Dioxide (22-30) mmol/L BUN (9-20) mg/dL Glucose (74-99) mg/dL POC Glucose (mg/dL) 182 H 168 H 173 H (70-110) mg/dL 05/29/25 05/29/25 05/29/25 Range/Units 08:47 08:51 09:59 Sodium 134 L (137-145) mmol/L Carbon Dioxide 16 L (22-30) mmol/L BUN (9-20) mg/dL Glucose 180 H (74-99) mg/dL POC Glucose (mg/dL) 187 H 188 H (70-110) mg/dL 05/29/25 05/29/25 05/29/25 Range/Units 11:02 12:00 13:26 Sodium (137-145) mmol/L Carbon Dioxide (22-30) mmol/L BUN (9-20) mg/dL Glucose (74-99) mg/dL POC Glucose (mg/dL) 171 H 256 H 299 H (70-110) mg/dL 05/29/25 Range/Units 14:19 Sodium (137-145) mmol/L Carbon Dioxide (22-30) mmol/L BUN (9-20) mg/dL Glucose (74-99) mg/dL POC Glucose (mg/dL) 252 H (70-110) mg/dL
[2025-05-29 23:12] LABS: Glucose,Whole Blood 118 mg/dL (70-110)
[2025-05-29 23:30] LABS: Glucose,Whole Blood 106 mg/dL (70-110)
[2025-05-29] MEDS: OSELTAMIVIR 75 MG CAP PO SCH (23:34)
[2025-05-30 00:09] LABS: Glucose,Whole Blood 109 mg/dL (70-110)
[2025-05-30 00:33] LABS: African American GFR (CKD) >90 (>60 ml/min/1.73 sqM); Anion Gap 6 mmol/L; Blood Urea Nitrogen 12 mg/dL (9-20); Calcium 9.1 mg/dL (8.4-10.2); Carbon Dioxide 25 mmol/L (22-30); Chloride 104 mmol/L (98-107); Glucose 104 mg/dL (74-99); Non-African American GFR(CKD) >90 (>60 ml/min/1.73 sqM); Potassium 3.8 mmol/L (3.5-5.1); Sodium 135 mmol/L (137-145)
[2025-05-30 01:12] LABS: Glucose,Whole Blood 119 mg/dL (70-110)
[2025-05-30 02:05] LABS: Glucose,Whole Blood 156 mg/dL (70-110)
[2025-05-30 03:05] LABS: Glucose,Whole Blood 139 mg/dL (70-110)
[2025-05-30 04:03] LABS: Glucose,Whole Blood 139 mg/dL (70-110)
[2025-05-30 04:52] LABS: African American GFR (CKD) >90 (>60 ml/min/1.73 sqM); Anion Gap 10 mmol/L; Blood Urea Nitrogen 10 mg/dL (9-20); Calcium 9.6 mg/dL (8.4-10.2); Carbon Dioxide 23 mmol/L (22-30); Chloride 101 mmol/L (98-107); Glucose 161 mg/dL (74-99); Non-African American GFR(CKD) >90 (>60 ml/min/1.73 sqM); Potassium 4.0 mmol/L (3.5-5.1); Sodium 134 mmol/L (137-145)
[2025-05-30 05:58] LABS: Glucose,Whole Blood 169 mg/dL (70-110)
[2025-05-30 07:15] LABS: Basophils # (A) 0.06 10*3/uL (0.00-0.10); Basophils % (A) 0.6 %; Eosinophils # (A) 0.21 10*3/uL (0.04-0.35); Eosinophils % (A) 1.9 %; HCT 47.5 % (39.6-50.0); HGB 16.5 g/dL (13.0-17.0); Lymphocytes # (A) 2.15 10*3/uL (0.90-5.00); Lymphocytes % (A) 19.8 %; MCH 28.5 pg (27.0-32.0); MCHC 34.7 g/dL (32.0-37.0); MCV 82.2 fL (80.0-97.0); Monocytes # (A) 1.32 10*3/uL (0.20-1.00); Monocytes % (A) 12.2 %; Neutrophils # (A) 7.05 10*3/uL (1.80-7.70); Neutrophils % (A) 64.9 %; Platelet Count 205 10*3/uL (140-440); RBC 5.78 10*6/uL (4.40-5.60); RDW 16.5 % (11.5-14.5); WBC 10.85 10*3/uL (4.50-10.00)
[2025-05-30 07:46] LABS: ALT 12 U/L (4-49); AST 14 U/L (17-59); African American GFR (CKD) >90 (>60 ml/min/1.73 sqM); Albumin 3.4 g/dL (3.5-5.0); Alkaline Phosphatase 61 U/L (38-126); Anion Gap 10 mmol/L; Blood Urea Nitrogen 9 mg/dL (9-20); Calcium 9.0 mg/dL (8.4-10.2); Carbon Dioxide 23 mmol/L (22-30); Chloride 102 mmol/L (98-107); Glucose 178 mg/dL (74-99); Non-African American GFR(CKD) >90 (>60 ml/min/1.73 sqM); Potassium 4.1 mmol/L (3.5-5.1); Sodium 135 mmol/L (137-145); Total Protein 5.7 g/dL (6.3-8.2)
[2025-05-30] MEDS: metFORMIN 500 MG TAB PO SCH (09:31)
[2025-05-30] MEDS: INSULIN GLARGINE (LANTUS) 100 UNIT/ML SYR SQ SCH (09:32)
[2025-05-30 11:22] LABS: Glucose,Whole Blood 173 mg/dL (70-110)
[2025-05-30 11:35] VITALS: TEMP 97.9
[2025-05-30] MEDS ORDERED: DEXTROSE 50% SYRINGE 50 ML IVP PRN ×2 (11:42)
[2025-05-30 12:02] LABS: African American GFR (CKD) >90 (>60 ml/min/1.73 sqM); Anion Gap 9 mmol/L; Blood Urea Nitrogen 10 mg/dL (9-20); Calcium 9.3 mg/dL (8.4-10.2); Carbon Dioxide 23 mmol/L (22-30); Chloride 101 mmol/L (98-107); Glucose 185 mg/dL (74-99); Non-African American GFR(CKD) >90 (>60 ml/min/1.73 sqM); Potassium 4.4 mmol/L (3.5-5.1); Sodium 133 mmol/L (137-145)
[2025-05-30] MEDS: INSULIN LISPRO (HumaLOG) 100 UNIT/ML 10 mL VL SQ SCH (12:48)
[2025-05-30 13:08] VITALS: BP 127/82; PULSE 91
[2025-05-30 15:07] LABS: Glucose,Whole Blood 133 mg/dL (70-110)
--- NOTE | 2025-06-02 05:25 | P.DS ---
Providers Date of admission: 05/28/25 12:22 Expected date of discharge: 05/30/25 Attending physician: Gualberto Ramirez MD Primary care physician: Ken Brown Hospital Course: Final diagnosis Diabetic ketoacidosis, resolved Severe dehydration from nausea vomiting, likely secondary to influenza A Abdominal pain secondary to DKA. Improved Nonadherence to Treatment Acute kidney injury secondary to GI volume loss with dehydration GI prophylaxis DVT prophylaxis Full code Discharge disposition Patient is being discharged in a stable condition with guarded prognosis to home. Patient will follow-up with Dr. Brown in the outpatient setting upon discharge. Patient is to continue with current medications including Tamiflu and recommend outpatient follow-up with GI and cardiology as scheduled. Total time taken is greater than 35 minutes. Hospital course This is a 49-year-old male who was recently admitted with nausea vomiting intractable likely gastritis and also noted to be in DKA. Patient is diabetic and reports has been unable to tolerate any oral intake and was having nausea and vomiting with episodes of diarrhea over the last few days. Patient denies any sick contacts although virology testing was performed and patient was noted to be influenza A positive. Patient started on Tamiflu and maintained on DKA protocol. Patient has transitioned off insulin drip and reports to feeling improved and able to tolerate diet. Patient is having some midepigastric pain and will give Protonix twice daily recommending outpatient follow-up with GI for possible EGD. Patient to continue with soft low fiber foods and close outpatient follow-up with primary care provider as well. Patient to follow-up with cardiology outpatient for further evaluation. Currently no reports of chest pain, shortness of breath, or palpitations. Patient is afebrile. No reports of nausea or vomiting and patient is tolerating diet. Patient will be discharged home today. Guarded prognosis and high risk for readmission given noncomplianc e. Physical exam: Gen: This is a 49-year-old male who is awake, alert oriented x 3, well- developed, appears older than stated age, chronically ill-appearing HEENT: Head is atraumatic, normocephalic. Pupils equal, round. Sclerae is anicteric. NECK: Supple. No JVD. No lymphadenopathy. No thyromegaly. LUNGS: Diminished breath sounds bilaterally otherwise clear to auscultation. No wheezes or rhonchi. No intercostal retractions. HEART: S1, S2 are muffled ABDOMEN: Soft. Obese, bowel sounds are present. No masses. No tenderness. EXTREMITIES: No pedal edema. No calf tenderness. NEUROLOGICAL: Patient is awake, alert and oriented x3. Cranial nerves 2 through 12 are grossly intact. Please refer to medication reconciliation sheet for a list of medications. The impression and plan of care has been dictated by Zahra Hastings, Nurse Practitioner as directed. Dr. Junaid MD I have performed a history and examination and MDM of this patient, discussed the same with the dictator, and agree with the dictator's assessment and plan as written ,documented as a scribe. Based on total visit time, I have performed more than 50% of the visit. Patient Condition at Discharge: Fair Plan - Discharge Summary Discharge Rx Participant: No New Discharge Prescriptions: New Calcium Carbonate [Tums] 1,000 mg PO TID PRN tab PRN Reason: Heartburn Pantoprazole Sodium [Protonix] 40 mg PO DAILY #30 tab Oseltamivir [Tamiflu] 75 mg PO Q12HR 5 Days #10 cap Acetaminophen Tab [Tylenol] 650 mg PO Q6HR PRN tab PRN Reason: Mild Pain Or Fever > 100.5 Continue metFORMIN HCL [Glucophage] 1,000 mg PO BID Gabapentin 600 mg PO TID Insulin Glargine (Lantus) [Lantus Vial] 20 unit SQ DAILY@0700 HYDROcodone/APAP 5-325MG [[place] 5-325] 1 tab PO BID PRN PRN Reason: Pain Pioglitazone [Actos] 30 mg PO DAILY Dulaglutide [Trulicity] 4.5 mg SQ FR Nicotine 21Mg/24Hr Patch [Habitrol] 1 patch TRANSDERM DAILY PRN PRN Reason: Nicotine Cravings Discontinued lisinopriL [Zestril] 5 mg PO DAILY Omeprazole 20 mg PO DAILY Empagliflozin [Jardiance] 25 mg PO DAILY Atorvastatin [Lipitor] 20 mg PO HS Discharge Medication List Gabapentin 600 mg PO TID 01/27/25 [History] HYDROcodone/APAP 5-325MG [[place] 5-325] 1 tab PO BID PRN 01/27/25 [History] Pioglitazone [Actos] 30 mg PO DAILY 01/27/25 [History] metFORMIN HCL [Glucophage] 1,000 mg PO BID 01/27/25 [History] Dulaglutide [Trulicity] 4.5 mg SQ FR 05/28/25 [History] Insulin Glargine (Lantus) [Lantus Vial] 20 unit SQ DAILY@0700 05/28/25 [History] Nicotine 21Mg/24Hr Patch [Habitrol] 1 patch TRANSDERM DAILY PRN 05/28/25 [History] Acetaminophen Tab [Tylenol] 650 mg PO Q6HR PRN tab 05/30/25 [Rx] Calcium Carbonate [Tums] 1,000 mg PO TID PRN tab 05/30/25 [Rx] Oseltamivir [Tamiflu] 75 mg PO Q12HR 5 Days #10 cap 05/30/25 [Rx] Pantoprazole Sodium [Protonix] 40 mg PO DAILY #30 tab 05/30/25 [Rx] Follow up Appointment(s)/Referral(s): Ken Brown III, MD [Primary Care Provider] - 1-2 days (please call to schedule. ) Valarie Rodas MD [STAFF PHYSICIAN] - 1 Week (please call to schedule. ) Patient Instructions/Handouts: Diabetic Ketoacidosis (DC), Influenza (DC) Activity/Diet/Wound Care/Special Instructions: Activity limited until follow-up Follow-up with primary care provider Follow-up with GI outpatient Follow-up with cardiology outpatient Continue taking medications as prescribed Monitor blood sugars closely Discharge Disposition: HOME SELF-CARE
== END 2025-05-30 15:01 | disposition home or self-care (01) | DRG 420 ==
LOC: EC 10:06 → 3SCARD 12:22
PROVIDERS: ADMIT Internal Medicine; ATTEND Internal Medicine
DX: E11.10 Type 2 diabetes mellitus with ketoacidosis without coma (principal); E86.0 Dehydration; F17.200 Nicotine dependence, unspecified, uncomplicated; J10.1 Influenza due to other identified influenza virus with other respiratory manifestations; T38.3X6A Underdosing of insulin and oral hypoglycemic [antidiabetic] drugs, initial encounter; K29.70 Gastritis, unspecified, without bleeding; J10.2 Influenza due to other identified influenza virus with gastrointestinal manifestations; N17.9 Acute kidney failure, unspecified; J45.909 Unspecified asthma, uncomplicated; Z79.4 Long term (current) use of insulin; Z91.128 Patient's intentional underdosing of medication regimen for other reason; Z79.84 Long term (current) use of oral hypoglycemic drugs; Z79.899 Other long term (current) drug therapy; Z79.85 Long-term (current) use of injectable non-insulin antidiabetic drugs; Z28.21 Immunization not carried out because of patient refusal
CPT/HCPCS: 36415; 71045; 80048; 80051; 80053; 81001; 82009; 82150; 82565; 82803; 82947; 83036; 83605; 83690; 83735; 84100; 84520; 85025; 87040; 87636; 96361; 96365; 96366; 96375; 99285